=== PATIENT | female | born 1975 | race Two or more races ===

== ENCOUNTER 2020-09-04 08:15 | Outpatient (REF) | payer OTHER, SELFPAY ==
[2020-09-04 11:54] LABS: Estimated Average Glucose 226 mg/dL; Hemoglobin A1c % 9.5 %
[2020-09-04 12:07] LABS: Creatinine Urine 162.67 mg/dL; Microalbum/Creatinine Ratio Ur 5.5 ug/mg cr
[2020-09-04 12:13] LABS: Alanine Aminotransferase 58 U/L (0-31); Alkaline Phosphatase 42 U/L (39-117); Anion Gap 15 (12-20); Aspartate Amino Transferase 38 U/L (5-31); Bilirubin Total 0.5 mg/dL (0.0-1.0); Blood Urea Nitrogen 13 mg/dL (9-16); Calcium 8.9 mg/dL (8.4-10.2); Carbon Dioxide 26 mmol/L (22-29); Chloride 101 mmol/L (96-108); Cholesterol 245 mg/dL; Estimated Glomerular Filt Rate > 60; Glucose Fasting 201 mg/dL (60-99); HDL Cholesterol 46 mg/dL; LDL Cholesterol Calculated 128 mg/dl; Potassium 4.5 mmol/l (3.3-5.1); Sodium 137 mmol/L (135-145); Total Protein 6.7 g/dL (6.5-8.0); Triglycerides 358 mg/dL
[2020-09-04 12:36] LABS: Vitamin D 25-OH Total 12.5 ng/mL (>30)
== END 2020-09-04 08:16 | disposition home or self-care (01) ==
LOC: HO.MANLR 08:15
PROVIDERS: PCP Internal Medicine; Visit Provider Internal Medicine
DX: E11.9 Type 2 diabetes mellitus without complications (principal); E55.9 Vitamin D deficiency, unspecified
CPT/HCPCS: 80053; 80061; 82043; 82306; 83036

== ENCOUNTER 2021-03-07 11:38 | Outpatient (REF) | payer BC, SELFPAY ==
[2021-03-07 13:27] LABS: MANUAL DIFF FLAG NO
[2021-03-07 13:33] LABS: Basophils Percent Auto 0.5 % (0-2); Eosinophils Absolute Auto 0.2 X10*3/uL (0.0-0.4); Eosinophils Percent Auto 2.9 % (0-4); Hematocrit 39.4 % (37-47); Hemoglobin 13.3 g/dl (12.0-16.0); Imm Gran Abs Auto 0.03 X10*3/uL (0.00-0.03); Imm Gran Pct Auto 0.4 % (0.0-0.4); Lymphocytes Absolute Auto 2.8 X10*3/uL (1.2-4.9); Lymphocytes Percent Auto 34.9 % (20-40); Mean Corpuscular HGB Conc 33.8 g/dl (31.0-35.0); Mean Corpuscular Hemoglobin 28.8 pg (27.0-33.0); Mean Corpuscular Volume 85.3 fL (80-98); Mean Platelet Volume 11.7 fL (9.4-12.3); Monocytes Absolute Auto 0.6 X10*3/uL (0.1-1.2); Monocytes Percent Auto 6.8 % (2-11); Neutrophils Absolute Auto 4.4 X10*3/uL (2.0-8.3); Neutrophils Percent Auto 54.5 % (45-73); Platelet Count 320 X10*3/uL (160-400); Red Blood Count 4.62 X10*6/uL (4.20-5.50); Red Cell Distribution Width 12.4 % (11.0-16.0); White Blood Count 8.1 X10*3/uL (4.8-10.8)
[2021-03-07 14:21] LABS: Estimated Average Glucose 240 mg/dL
[2021-03-07 14:55] LABS: Alanine Aminotransferase 71 U/L (0-31); Alkaline Phosphatase 44 U/L (39-117); Anion Gap 13 (12-20); Aspartate Amino Transferase 48 U/L (5-31); Bilirubin Total 0.6 mg/dL (0.0-1.0); Blood Urea Nitrogen 8 mg/dL (9-16); Calcium 9.4 mg/dL (8.4-10.2); Carbon Dioxide 26 mmol/L (22-29); Chloride 104 mmol/L (96-108); Estimated Glomerular Filt Rate > 60; Glucose Random 195 mg/dL (60-115); Potassium 4.3 mmol/L (3.3-5.1); Sodium 139 mmol/L (135-145); Total Protein 6.4 g/dL (6.5-8.0)
[2021-03-07 14:59] LABS: Vitamin D 25-OH Total 13.9 ng/mL (>30)
== END 2021-03-07 11:39 | disposition home or self-care (01) ==
LOC: HO.MANLDS 11:38
PROVIDERS: PCP Internal Medicine; Visit Provider Physician Assistant
DX: E78.5 Hyperlipidemia, unspecified (principal); E55.9 Vitamin D deficiency, unspecified; E11.9 Type 2 diabetes mellitus without complications
CPT/HCPCS: 36415; 80053; 82306; 83036; 85025

== ENCOUNTER → 2021-11-12 12:31 | Outpatient (BNVA) | payer BC, SELFPAY | PROVIDERS: PCP Internal Medicine; Visit Provider Nurse Practitioner Gerontology | DX: E11.9 Type 2 diabetes mellitus without complications (principal); E78.5 Hyperlipidemia, unspecified; E55.9 Vitamin D deficiency, unspecified; E04.9 Nontoxic goiter, unspecified; I10 Essential (primary) hypertension; E66.09 Other obesity due to excess calories; Z68.31 Body mass index [BMI] 31.0-31.9, adult; Z79.84 Long term (current) use of oral hypoglycemic drugs | CPT/HCPCS: 82947; 83036 ==

== ENCOUNTER 2021-11-14 09:17 | Outpatient (REF) | payer BC, SELFPAY ==
[2021-11-14 12:06] LABS: Free T4 (Free Thyroxine) 1.07 ng/dL (0.71-1.85); Thyroid Stimulating Hormone 1.59 uIU/mL (0.32-4.0); Vitamin D 25-OH Total 15.2 ng/mL (>30)
[2021-11-14 12:08] LABS: Alanine Aminotransferase 46 U/L (0-31); Albumin Level 4.4 g/dL (3.5-5.0); Alkaline Phosphatase 37 U/L (39-117); Anion Gap 14 (12-20); Aspartate Amino Transferase 33 U/L (5-31); Bilirubin Total 0.6 mg/dL (0.0-1.0); Blood Urea Nitrogen 11 mg/dL (9-16); Carbon Dioxide 27 mmol/L (22-29); Chloride 103 mmol/L (96-108); Cholesterol 250 mg/dL; Estimated Glomerular Filt Rate > 60; Glucose Fasting 149 mg/dL (60-99); HDL Cholesterol 54 mg/dL; LDL Cholesterol Calculated 175 mg/dl; Potassium 4.3 mmol/L (3.3-5.1); Sodium 140 mmol/L (135-145); Total Protein 7.2 g/dL (6.5-8.0); Triglycerides 107 mg/dL
[2021-11-14 12:33] LABS: Creatinine Urine 70.77 mg/dL
[2021-11-15 14:56] LABS: LDL Cholesterol Direct 163 mg/dL (<100)
[2021-11-17 21:37] LABS: Thyroglobulin Antibodies <1 IU/mL (< or = 1); Thyroid Peroxidase Antibodies <1 IU/mL (<9)
== END 2021-11-14 09:18 | disposition home or self-care (01) ==
LOC: HO.HMGCLDS 09:17
PROVIDERS: Visit Provider Nurse Practitioner Gerontology
DX: E11.9 Type 2 diabetes mellitus without complications (principal); E04.9 Nontoxic goiter, unspecified; E55.9 Vitamin D deficiency, unspecified
CPT/HCPCS: 36415; 80053; 80061; 82043; 82306; 83721; 84439; 84443; 86376; 86800

== ENCOUNTER 2021-11-25 13:58 | Outpatient (REF) | payer BC, SELFPAY ==
--- NOTE | ~2021-11-25 | US_ITS ---
EXAMINATION: US THYROID CLINICAL INFORMATION: Goiter COMPARISON: None TECHNIQUE: Linear transducer grayscale and color Doppler examination with attention to the region of the thyroid. FINDINGS: SIZE: Measurements of the thyroid lobes and nodules are given in sagittal, anteroposterior and transverse dimensions respectively. Right Thyroid Lobe: 4.5 x 1.6 x 1.6 cm, volume 6.0 mL. Parenchyma: The gland echotexture is homogeneous. Thyroid vascularity is normal. Left Thyroid Lobe: 4.7 x 1.5 x 1.4 cm, volume 5.2 mL. Parenchyma: The gland echotexture is homogeneous. Thyroid vascularity is normal. Isthmus: 0.6 cm in maximum AP dimension. Estimated total number of nodules greater than or equal to 1 cm: 2. 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 Location: Left isthmus low. Size: 1.0 x 0.5 x 0.8 cm, volume 0.21 mL. Nodule characteristics: Composition: Solid (2). Echogenicity: Cannot be determined (1). Shape: Not taller than wide (0). Margins: Ill-defined (0). Echogenic Foci: None (0). ACR TI-RADS total points: 3 ACR TI-RADS category: 3 2. Location: Left lower. Size: 0.1 x 0.7 x 0.9 cm, volume 0.32 mL. Nodule characteristics: Composition: Solid (2). Echogenicity: Hyperechoic (1). Shape: Not taller than wide (0). Margins: Ill-defined (0). Echogenic Foci: None (0). ACR TI-RADS total points: 3 ACR TI-RADS category: 3 3. Location: Lower medial left. Size: 0.8 x 0.5 x 0.8 cm, volume 0.19 mL. Nodule characteristics: Composition: Solid (2). Echogenicity: Cannot be determined (1). Shape: Not taller than wide (0). Margins: Ill-defined (0). Echogenic Foci: None (0). ACR TI-RADS total points: 3 ACR TI-RADS category: 3 4. Location: Lower right isthmus. Size: 0.9 x 0.5 x 0.7 cm, volume 0.15 mL. Nodule characteristics: Composition: Solid (2). Echogenicity: Cannot be determined (1). Shape: Not taller than wide (0). Margins: Ill-defined (0). Echogenic Foci: None (0). ACR TI-RADS total points: 3 ACR TI-RADS category: 3 5. Location: Lower right isthmus. Size: 0.7 x 0.4 x 0.6 cm, volume 0.08 mL. Nodule characteristics: Composition: Solid (2). Echogenicity: Cannot be determined (1). Shape: Not taller than wide (0). Margins: Ill-defined (0). Echogenic Foci: None (0). ACR TI-RADS total points: 3 ACR TI-RADS category: 3 NODES: No lymphadenopathy is seen in the tissue surrounding the thyroid gland. US/US thyroid IMPRESSION: Normal size thyroid gland. Multiple adjacent clustered nodules in the inferior medial lower lobes and isthmus. According to TIRADS criteria, ultrasound follow-up and fine-needle aspiration not indicated. ACR TI-RADS RECOMMENDATION REFERENCE: Ultrasound-guided fine-needle aspiration, followup ultrasound, no further follow up. * TR1 (0 point) and TR 2 (2 points): No FNA or follow up * TR3 (3 points): FNA if more than or equal to 2.5 cm in maximum dimension, followup ultrasound in 1, 3 and 5 years if 1.5 to 2.4 cm in maximum dimension. * TR4 (4-6 points): FNA if more than or equal to 1.5 cm in maximum dimension, followup ultrasound in 1, 2, 3 and 5 years if 1 to 1.4 cm in maximum dimension. * TR5 (more than or equal to 7 points): FNA if more than or equal to 1 cm in maximum dimension, followup ultrasound every year for 5 years if 0.5 to 0.9 cm in maximum dimension. * TR3, TR4 or TR5 nodules that are below the size threshold for follow up receive no follow up.
== END 2021-11-25 13:59 | disposition home or self-care (01) ==
LOC: HO.HMGCX 13:58
PROVIDERS: PCP Internal Medicine; Visit Provider Nurse Practitioner Gerontology
DX: E04.9 Nontoxic goiter, unspecified (principal)
CPT/HCPCS: 76536

== ENCOUNTER → 2021-12-03 12:30 | Outpatient (BNVA) | payer BC, SELFPAY | PROVIDERS: PCP Internal Medicine; Visit Provider Registered Nurse Diabetes Educator ==

== ENCOUNTER 2022-02-10 12:25 | Outpatient (REF) | payer BC, SELFPAY ==
[2022-02-10 14:36] LABS: Vitamin D 25-OH Total 31.7 ng/mL (>30)
== END 2022-02-10 12:26 | disposition home or self-care (01) ==
LOC: HO.HMGCLDS 12:25
PROVIDERS: PCP Internal Medicine; Visit Provider Nurse Practitioner Gerontology
DX: E55.9 Vitamin D deficiency, unspecified (principal)
CPT/HCPCS: 36415; 82306

== ENCOUNTER → 2022-02-11 12:32 | Outpatient (BNVA) | payer BC, SELFPAY | PROVIDERS: PCP Internal Medicine; Visit Provider Nurse Practitioner Gerontology | DX: E11.9 Type 2 diabetes mellitus without complications (principal); E78.5 Hyperlipidemia, unspecified; E55.9 Vitamin D deficiency, unspecified; E66.09 Other obesity due to excess calories; I10 Essential (primary) hypertension; Z68.30 Body mass index [BMI] 30.0-30.9, adult; Z79.84 Long term (current) use of oral hypoglycemic drugs | CPT/HCPCS: 82947; 83036 ==

== ENCOUNTER 2022-03-25 11:43 | Outpatient (REF) | payer BC, SELFPAY ==
[2022-03-25 13:41] LABS: MANUAL DIFF FLAG NO
[2022-03-25 13:54] LABS: Basophils Percent Auto 0.5 % (0-2); Eosinophils Absolute Auto 0.4 X10*3/uL (0.0-0.4); Eosinophils Percent Auto 4.6 % (0-4); Hematocrit 40.3 % (37.0-47.0); Hemoglobin 13.5 g/dl (12.0-16.0); Imm Gran Abs Auto 0.02 X10*3/uL (0.00-0.03); Imm Gran Pct Auto 0.2 % (0.0-0.4); Lymphocytes Absolute Auto 2.3 X10*3/uL (1.2-4.9); Lymphocytes Percent Auto 27.8 % (20-40); Mean Corpuscular HGB Conc 33.5 g/dl (31.0-35.0); Mean Corpuscular Hemoglobin 28.1 pg (27.0-33.0); Mean Corpuscular Volume 83.8 fL (80.0-98.0); Mean Platelet Volume 11.5 fL (9.4-12.3); Monocytes Absolute Auto 0.5 X10*3/uL (0.1-1.2); Monocytes Percent Auto 6.3 % (2-11); Neutrophils Percent Auto 60.6 % (45-73); Platelet Count 338 X10*3/uL (160-400); Red Blood Count 4.81 X10*6/uL (4.20-5.50); Red Cell Distribution Width 12.5 % (11.0-16.0); White Blood Count 8.3 X10*3/uL (4.8-10.8)
[2022-03-25 14:29] LABS: Alanine Aminotransferase 41 U/L (0-31); Alkaline Phosphatase 47 U/L (39-117); Amylase 56 U/L (28-100); Anion Gap 14 (12-20); Aspartate Amino Transferase 28 U/L (5-31); Bilirubin Total 0.5 mg/dL (0.0-1.0); Blood Urea Nitrogen 9 mg/dL (9-16); C Reactive Protein 0.31 mg/dL (< or = 0.50); Calcium 9.2 mg/dL (8.4-10.2); Carbon Dioxide 23 mmol/L (22-29); Chloride 104 mmol/L (96-108); Estimated Glomerular Filt Rate > 60; Gamma Glutamyl Transpeptidase 41 U/L (7-33); Glucose Random 190 mg/dL (60-115); Iron 62 mcg/dL (30-160); Lipase 138 U/L (8-78); Percent Iron Saturation 17 % (15-50); Potassium 4.4 mmol/L (3.3-5.1); Sodium 137 mmol/L (135-145); Total Iron Binding Capacity 357 mcg/dL (228-428); Total Protein 6.5 g/dL (6.5-8.0); Unsaturated Iron Binding 295 ug/dL
[2022-03-25 14:52] LABS: Ferritin 66 ng/mL (10-250)
[2022-03-25 15:12] LABS: Erythrocyte Sedimentation Rate 3 MM/HR (0-20)
== END 2022-03-25 11:44 | disposition home or self-care (01) ==
LOC: HO.MANLDS 11:43
PROVIDERS: Visit Provider Physician Assistant
DX: R19.7 Diarrhea, unspecified (principal)
CPT/HCPCS: 36415; 80053; 82150; 82728; 82977; 83540; 83690; 85025; 85652; 86140

== ENCOUNTER 2022-03-27 10:53 | Outpatient (REF) | payer BC, SELFPAY ==
[2022-03-27 15:13] LABS: Adenovirus F 40/41 Not Detected (Not Detect.); Astrovirus Not Detected (Not Detect.); Campylobacter Not Detected (Not Detect.); Cryptosporidium Not Detected (Not Detect.); Cyclospora cayetanensis Not Detected (Not Detect.); E. coli EAEC Not Detected (Not Detect.); E. coli EPEC Not Detected (Not Detect.); E. coli ETEC Not Detected (Not Detect.); E. coli STEC Not Detected (Not Detect.); Entamoeba histolytica Not Detected (Not Detect.); Giardia lamblia Not Detected (Not Detect.); Norovirus GI/GII Not Detected (Not Detect.); Plesiomonas shigelloides Not Detected (Not Detect.); Rotavirus A Not Detected (Not Detect.); Salmonella Not Detected (Not Detect.); Sapovirus Not Detected (Not Detect.); Shigella sp./EIEC Not Detected (Not Detect.); Vibrio Not Detected (Not Detect.); Vibrio Cholerae Not Detected (Not Detect.); Yersinia enterocolitica Not Detected (Not Detect.)
== END 2022-03-27 10:54 | disposition home or self-care (01) ==
LOC: HO.MANLDS 10:53
PROVIDERS: Visit Provider Physician Assistant
DX: R19.7 Diarrhea, unspecified (principal); R10.9 Unspecified abdominal pain; R19.5 Other fecal abnormalities
CPT/HCPCS: 36415; 87507

== ENCOUNTER 2022-04-16 09:02 | Outpatient (REF) | payer BC, SELFPAY ==
--- NOTE | 2022-04-16 09:49 | PM.OP ---
Brief Operative Note Date of Service: 04/16/22 Pre-op diagnosis: Multinodular Thyroid Procedure: EXAMINATION: US THYROID CLINICAL INFORMATION: Multinodular Thyroid COMPARISON: Prior TECHNIQUE: Linear transducer orozco-scale and color Doppler examination with attention to the region of the thyroid. FINDINGS: SIZE: Measurements of the thyroid lobes and nodules are given in sagittal, anteroposterior and transverse dimensions respectively. Right Thyroid Lobe: 4.8 x 1.4 x 1.3 cm, volume 4.3 mL. Parenchyma: The gland echotexture is heterogenous. Thyroid vascularity is normal. Left Thyroid Lobe: 4.9 x 1.2 x 1.2 cm, volume 3.6 mL. Parenchyma: The gland echotexture is heterogenous. Thyroid vascularity is normal. Isthmus: 0.5 cm in maximum AP dimension. RIGHT THYROID LOBE: There are 2 nodules. 1) There is a right isthmus 0.5 x 0.5 x 0.6 cm predominantly solid hyperechoic nodule nodule.This has regular margins, no calcification and normal intranodular flow. 1) There is a right isthmus 0.4 x 0.6 x 0.6 cm predominantly solid hyperechoic nodule nodule.This has regular margins, no calcification and normal intranodular flow. LEFT THYROID LOBE: There are 3 nodules. 1) There is a LMP 1.0 x 0.7 x 0.8 cm predominantly solid hyperechoic nodule nodule.This has regular margins, no calcification and normal intranodular flow. 2) There is a LMP 1.1 x 0.8 x 0.9 cm predominantly solid hyperechoic nodule nodule.This has regular margins, no calcification and normal intranodular flow. 3) There is a LMP 1.0 x 0.6 x 1.0 cm predominantly solid hyperechoic nodule nodule.This has regular margins, no calcification and normal intranodular flow. NODES: No lymph nodes were examined. Surgeon: Rosa Marcos, DO Was an After School Driver used for this Procedure?: No Estimated blood loss (mL): 0
== END 2022-04-16 09:03 | disposition home or self-care (01) ==
LOC: HO.US 09:02
PROVIDERS: Visit Provider Internal Medicine
DX: E04.2 Nontoxic multinodular goiter (principal)
CPT/HCPCS: 76536

== ENCOUNTER 2022-04-30 13:30 | Outpatient (REF) | payer BC, SELFPAY ==
[2022-04-30 14:57] LABS: Free T4 (Free Thyroxine) 1.01 ng/dL (0.71-1.85); Thyroid Stimulating Hormone 1.07 uIU/mL (0.32-4.0)
== END 2022-04-30 13:31 | disposition home or self-care (01) ==
LOC: HO.LAB 13:30
PROVIDERS: PCP Internal Medicine; Visit Provider Internal Medicine
DX: E04.2 Nontoxic multinodular goiter (principal)
CPT/HCPCS: 36415; 84439; 84443

== ENCOUNTER 2022-07-20 15:24 | Outpatient (REF) | payer BC, SELFPAY ==
[2022-07-20 17:37] LABS: MANUAL DIFF FLAG NO
[2022-07-20 17:44] LABS: Basophils Percent Auto 0.5 % (0-2); Eosinophils Absolute Auto 0.4 X10*3/uL (0.0-0.4); Eosinophils Percent Auto 4.8 % (0-4); Hematocrit 40.7 % (37.0-47.0); Hemoglobin 14.1 g/dl (12.0-16.0); Imm Gran Abs Auto 0.03 X10*3/uL (0.00-0.03); Imm Gran Pct Auto 0.4 % (0.0-0.4); Lymphocytes Absolute Auto 2.9 X10*3/uL (1.2-4.9); Lymphocytes Percent Auto 35.8 % (20-40); Mean Corpuscular HGB Conc 34.6 g/dl (31.0-35.0); Mean Corpuscular Hemoglobin 29.1 pg (27.0-33.0); Mean Corpuscular Volume 83.9 fL (80.0-98.0); Mean Platelet Volume 11.8 fL (9.4-12.3); Monocytes Absolute Auto 0.6 X10*3/uL (0.1-1.2); Neutrophils Absolute Auto 4.1 x10*3/uL (2.0-8.3); Neutrophils Percent Auto 51.5 % (45-73); Platelet Count 320 X10*3/uL (160-400); Red Blood Count 4.85 X10*6/uL (4.20-5.50); Red Cell Distribution Width 12.5 % (11.0-16.0)
[2022-07-20 17:48] LABS: Estimated Average Glucose 263 mg/dL; Hemoglobin A1c % 10.8 %
[2022-07-20 17:51] LABS: Alanine Aminotransferase 29 U/L (0-31); Alkaline Phosphatase 53 U/L (39-117); Anion Gap 17 (12-20); Aspartate Amino Transferase 22 U/L (5-31); Bilirubin Total 0.4 mg/dL (0.0-1.0); Blood Urea Nitrogen 7 mg/dL (9-16); C Reactive Protein 0.51 mg/dL (< or = 0.50); Calcium 9.8 mg/dL (8.4-10.2); Carbon Dioxide 26 mmol/L (22-29); Chloride 99 mmol/L (96-108); Estimated Glomerular Filt Rate > 60; Glucose Random 302 mg/dL (60-115); Potassium 4.4 mmol/L (3.3-5.1); Sodium 138 mmol/L (135-145); Total Protein 6.7 g/dL (6.5-8.0)
[2022-07-20 18:37] LABS: Erythrocyte Sedimentation Rate 5 MM/HR (0-20)
== END 2022-07-20 15:25 | disposition home or self-care (01) ==
LOC: HO.MANLDS 15:24
PROVIDERS: Visit Provider Physician Assistant
DX: E11.65 Type 2 diabetes mellitus with hyperglycemia (principal); K65.4 Sclerosing mesenteritis
CPT/HCPCS: 36415; 80053; 83036; 85025; 85652; 86140

== ENCOUNTER 2022-08-19 10:31 | Outpatient (REF) | payer BC, SELFPAY ==
--- NOTE | ~2022-08-19 | US_ITS ---
EXAMINATION: US SOFT TISSUE NECK CLINICAL INFORMATION: Localized enlarged lymph nodes. COMPARISON: None TECHNIQUE: Ultrasound of the neck soft tissues was performed with high-frequency orozco-scale imaging and color Doppler. FINDINGS: RIGHT NECK SOFT TISSUES: Scattered architecturally normal nodes are present. The nodes show normal fatty hilus, normal cortical thickness, and no cystic change or calcification. No abnormal color flow. The largest nodes are as follows: Level Vb: 1.13 x 0.53 x 0.78 cm. Normal kandice architecture. Level II: 1.2 x 0.45 x 1.3 cm. Normal kandice architecture. Level II: 0.90 x 0.33 x 1.3 cm. Normal kandice architecture. LEFT NECK SOFT TISSUES: Scattered architecturally normal nodes are present. The nodes show normal fatty hilus, normal cortical thickness, and no cystic change or calcification. No abnormal color flow. The largest nodes are as follows: Level Ib: 0.70 x 0.43 x 0.71 cm. Normal kandice architecture. Level II: 1.0 x 0.42 x 0.80 cm. Normal kandice architecture. Level Va: 0.81 x 0.25 x 0.48 cm. Normal kandice architecture. US/US soft tiss head and/or neck IMPRESSION: 1. Bilateral benign neck lymph nodes. 2. If clinically indicated, further evaluation of the neck soft tissues and nodes may be performed with CT soft tissue neck with intravenous contrast.
== END 2022-08-19 10:32 | disposition home or self-care (01) ==
LOC: HO.HMGCX 10:31
PROVIDERS: PCP Physician Assistant; Visit Provider Physician Assistant
DX: R59.0 Localized enlarged lymph nodes (principal)
CPT/HCPCS: 76536

== ENCOUNTER 2022-09-08 09:58 | Outpatient (REF) | payer BC, SELFPAY ==
[2022-09-08 12:19] LABS: Monotest Negative (Negative)
[2022-09-09 08:28] LABS: EBV-VCA IgM Ab <36.00 U/mL
== END 2022-09-08 09:59 | disposition home or self-care (01) ==
LOC: HO.MANLDS 09:58
PROVIDERS: Visit Provider Physician Assistant
DX: R07.0 Pain in throat (principal)
CPT/HCPCS: 36415; 86308; 86664; 86665

== ENCOUNTER 2023-02-02 09:05 | Outpatient (REF) | payer BC, SELFPAY ==
[2023-02-02 11:40] LABS: Estimated Average Glucose 249 mg/dL; Hemoglobin A1c % 10.3 %
[2023-02-02 12:05] LABS: Alanine Aminotransferase 21 U/L (0-31); Albumin Level 3.9 g/dL (3.5-5.0); Alkaline Phosphatase 43 U/L (39-117); Anion Gap 15 (12-20); Aspartate Amino Transferase 19 U/L (5-31); Bilirubin Total 0.8 mg/dL (0.0-1.0); Blood Urea Nitrogen 8 mg/dL (9-16); Calcium 9.3 mg/dL (8.4-10.2); Carbon Dioxide 26 mmol/L (22-29); Chloride 104 mmol/L (96-108); Cholesterol 211 mg/dL; Estimated Glomerular Filt Rate > 60; Glucose Random 177 mg/dL (60-115); HDL Cholesterol 57 mg/dL; LDL Cholesterol Calculated 127 mg/dl; Potassium 4.5 mmol/L (3.3-5.1); Sodium 140 mmol/L (135-145); Total Protein 6.2 g/dL (6.5-8.0); Triglycerides 137 mg/dL
== END 2023-02-02 09:06 | disposition home or self-care (01) ==
LOC: HO.MANLDS 09:05
PROVIDERS: Visit Provider Physician Assistant
DX: E11.65 Type 2 diabetes mellitus with hyperglycemia (principal)
CPT/HCPCS: 36415; 80053; 80061; 83036

== ENCOUNTER 2023-02-16 13:35 | Outpatient (REF) | payer BC, SELFPAY ==
--- NOTE | ~2023-02-16 | US_ITS ---
EXAMINATION: US THYROID CLINICAL INFORMATION: Nontoxic multinodular goiter. COMPARISON: Ultrasound soft tissue neck 08/19/2022. Ultrasound soft tissue head/neck thyroid dated 11/25/2021. TECHNIQUE: Linear transducer grayscale and color Doppler examination with attention to the region of the thyroid. FINDINGS: SIZE: Measurements of the thyroid lobes and nodules are given in sagittal, anteroposterior and transverse dimensions respectively. Right Thyroid Lobe: 4.8 x 1.8 x 1.6 cm, volume 7.2 mL. Previously 4.5 x 1.6 x 1.6 cm, volume 6.0 mL. Parenchyma: The gland echotexture is homogeneous. Thyroid vascularity is normal. Left Thyroid Lobe: 5.1 x 1.3 x 1.5 cm, volume 5.2 mL. Previously 4.7 x 1.5 x 1.4 cm, volume 5.2 mL. Parenchyma: The gland echotexture is homogeneous. Thyroid vascularity is normal. Isthmus: 0.6 cm in maximum AP dimension. Previously 0.5 cm. Estimated total number of nodules greater than or equal to 1 cm: 3. 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 Location: Inferior right isthmus. Size: 0.6 x 0.4 x 0.6 cm, volume 0.07 mL. Previously: 0.9 x 0.5 x 0.7 cm, volume 0.15 mL. Nodule characteristics: Composition: Solid/almost completely solid (2). Echogenicity: Isoechoic (1). Shape: Not taller than wide (0). Margins: Smooth (0). Echogenic Foci: None (0). ACR TI-RADS total points: 3 Previous: 3 ACR TI-RADS category: 3 Previous: 3 Significant change in size (>/= 20% in 2 dimensions and minimal increase of 2 mm or 50% or greater increase in volume): No Change in features: No Change in ACR TI-RADS risk category: No 2. Location: Inferior isthmus. Size: 1.0 x 0.6 x 0.6 cm, volume 0.19 mL. Previously: 0.7 x 0.4 x 0.6 cm, volume 0.08 mL. Nodule characteristics: Composition: Solid (2). Echogenicity: Isoechoic (1). Shape: Not taller than wide (0). Margins: Smooth (0). Echogenic Foci: None (0). ACR TI-RADS total points: 3 Previous: 3 ACR TI-RADS category: 3 Previous: 3 Significant change in size (>/= 20% in 2 dimensions and minimal increase of 2 mm or 50% or greater increase in volume): No Change in features: No Change in ACR TI-RADS risk category: No 3. Location: Left inferior medial. Size: 1.6 x 0.7 x 0.9 cm, volume 0.48 mL. Previously: 1.0 x 0.5 x 0.8 cm, volume 0.21 mL. Nodule characteristics: Composition: Solid (2). Echogenicity: Hypoechoic (2). Shape: Not taller than wide (0). Margins: Smooth (0). Echogenic Foci: None (0). ACR TI-RADS total points: 4 Previous: 3 ACR TI-RADS category: 4 Previous: 3 Significant change in size (>/= 20% in 2 dimensions and minimal increase of 2 mm or 50% or greater increase in volume): Yes Change in features: Yes Change in ACR TI-RADS risk category: Yes 4. Location: Left inferior medial. Size: 1.3 x 0.7 x 0.9 cm, volume 0.43 mL. Previously: 1.1 x 0.7 x 0.9 cm, volume 0.32 mL. Nodule characteristics: Composition: Solid (2). Echogenicity: Isoechoic (1). Shape: Not taller than wide (0). Margins: Smooth (0). Echogenic Foci: None (0). ACR TI-RADS total points: 3 Previous: 3 ACR TI-RADS category: 3 Previous: 3 Significant change in size (>/= 20% in 2 dimensions and minimal increase of 2 mm or 50% or greater increase in volume): No Change in features: No Change in ACR TI-RADS risk category: No 5. Location: Right inferior. Size: 0.8 x 0.3 x 0.5 cm, volume 0.07 mL. Previously: New since the previous study. Nodule characteristics: Composition: Solid/almost completely solid (2). Echogenicity: Isoechoic (1). Shape: Not taller than wide (0). Margins: Smooth (0). Echogenic Foci: None (0). ACR TI-RADS total points: 3 ACR TI-RADS category: 3 NODES: No lymphadenopathy is seen in the tissue surrounding the thyroid gland. US/US thyroid IMPRESSION: Left Inferior pole 1.6 cm TI-RADS 4 nodule. Per ACR criteria given size equal to or greater than 1.5 cm, FNA is recommended. Remaining nodules do not meet ACR criteria for follow-up. ACR TI-RADS RECOMMENDATION REFERENCE: Ultrasound-guided fine-needle aspiration, followup ultrasound, no further follow up. * TR1 (0 point) and TR2 (2 points): No FNA or follow up * TR3 (3 points): FNA if more than or equal to 2.5 cm in maximum dimension, followup ultrasound in 1, 3 and 5 years if 1.5 to 2.4 cm in maximum dimension. * TR4 (4-6 points): FNA if more than or equal to 1.5 cm in maximum dimension, followup ultrasound in 1, 2, 3 and 5 years if 1 to 1.4 cm in maximum dimension. * TR5 (more than or equal to 7 points): FNA if more than or equal to 1 cm in maximum dimension, followup ultrasound every year for 5 years if 0.5 to 0.9 cm in maximum dimension. * TR3, TR4 or TR5 nodules that are below the size threshold for follow up receive no follow up.
== END 2023-02-16 13:36 | disposition home or self-care (01) ==
LOC: HO.HMGCX 13:35
PROVIDERS: PCP Physician Assistant; Visit Provider Internal Medicine
DX: E04.2 Nontoxic multinodular goiter (principal)
CPT/HCPCS: 76536

== ENCOUNTER 2023-04-29 13:48 | Outpatient (AMB) | payer BC, SELFPAY ==
--- NOTE | 2023-04-29 11:14 | A.OFFVIS_ITS ---
Intake Intake Visit Reasons: NTMNG Allergies levofloxacin [From Levaquin] Allergy (Severe, Verified 04/29/23 13:55) Anaphylaxis acetaminophen [From Tylox] Allergy (Unknown, Verified 04/29/23 13:55) Unknown cefaclor [From Ceclor] Allergy (Unknown, Verified 04/29/23 13:55) Unknown clindamycin Allergy (Unknown, Verified 04/29/23 13:55) Unknown codeine Allergy (Unknown, Verified 04/29/23 13:55) Unknown hydrocodone Allergy (Unknown, Verified 04/29/23 13:55) Unknown hydromorphone [From Dilaudid] Allergy (Unknown, Verified 04/29/23 13:55) Unknown oxycodone [From Tylox] Allergy (Unknown, Verified 04/29/23 13:55) Unknown morphine Adverse Reaction (Severe, Verified 04/29/23 13:55) Vomiting Lfqxfqd-MIP-PgI Reductase Inhibitor [Ixulryp-Wsz-Rko Reductase Inhibitor] Adverse Reaction (Intermediate, Verified 04/29/23 13:55) Itching azithromycin Adverse Reaction (Mild, Verified 04/29/23 13:55) Itching Medication List - Last Reconciled 04/29/23 by Rosa Marcos, epinephrine 0.3 mg IM Q15M PRN flash glucose sensor (FreeStyle Brent 2 Sensor kit) As directed every 2 weeks metformin 1,000 mg PO BID propranolol ER 80 mg PO DAILY rosuvastatin 5 mg PO DAILY HPI HPI Comments History of Present Illness Details 48 YO Female with a PMHx of T2DM and a NTMNG who is seen in F/U. She was previously managed by Doris Gaytan. She was scheduled for an FNA biopsy with me of her L isthmus 1.0 cm thyroid nodule 04/16/2022, however at that time I repeated her US of the thyroid and found her gland to be diffusely heterogenous with no nodules meeting indication for FNA biopsy. She does report some compressive symptoms in terms of occasional dysphagia and the sensation of having to clear her throat. She denies any symptoms of hyper or hypothyroidism currently. She denies any personal history of head or neck irradiation. She denies any Family history of thyroid cancer. She does report a diagnosis of Grave's disease in one of her cousins. Thyroid US: 02/16/2023 Right Thyroid Lobe: 4.8 x 1.8 x 1.6 cm, volume 7.2 mL. Previously 4.5 x 1.6 x 1.6 cm, volume 6.0 mL. Parenchyma: The gland echotexture is homogeneous. Thyroid vascularity is normal. Left Thyroid Lobe: 5.1 x 1.3 x 1.5 cm, volume 5.2 mL. Previously 4.7 x 1.5 x 1.4 cm, volume 5.2 mL. Parenchyma: The gland echotexture is homogeneous. Thyroid vascularity is normal. Isthmus: 0.6 cm in maximum AP dimension. Previously 0.5 cm. Estimated total number of nodules greater than or equal to 1 cm: 3. 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 Location: Inferior right isthmus. ?? ? Size: 0.6 x 0.4 x 0.6 cm, volume 0.07 mL. ?? ? Previously: 0.9 x 0.5 x 0.7 cm, volume 0.15 mL. ?? ? Nodule characteristics: ?? ? Composition: Solid/almost completely solid (2). ?? ? Echogenicity: Isoechoic (1). ?? ? Shape: Not taller than wide (0). ?? ? Margins: Smooth (0). ?? ? Echogenic Foci: None (0).? ACR TI-RADS total points: 3 Previous: 3 ?? ? ACR TI-RADS category: 3 Previous: 3 ? Significant change in size (>/= 20% in 2 dimensions and minimal increase of 2 mm or 50% or greater increase in volume): No ?? ? Change in features: No ?? ? Change in ACR TI-RADS risk category: No 2.? Location: Inferior isthmus. ?? ? Size: 1.0 x 0.6 x 0.6 cm, volume 0.19 mL. ?? ? Previously: 0.7 x 0.4 x 0.6 cm, volume 0.08 mL. ?? ? Nodule characteristics: ?? ? Composition: Solid (2). ?? ? Echogenicity: Isoechoic (1). ?? ? Shape: Not taller than wide (0). ?? ? Margins: Smooth (0). ?? ? Echogenic Foci: None (0).? ACR TI-RADS total points: 3 Previous: 3 ?? ? ACR TI-RADS category: 3 Previous: 3 ? Significant change in size (>/= 20% in 2 dimensions and minimal increase of 2 mm or 50% or greater increase in volume): No ?? ? Change in features: No ?? ? Change in ACR TI-RADS risk category: No 3.? Location: Left inferior medial. ?? ? Size: 1.6 x 0.7 x 0.9 cm, volume 0.48 mL. ?? ? Previously: 1.0 x 0.5 x 0.8 cm, volume 0.21 mL. ?? ? Nodule characteristics: ?? ? Composition: Solid (2). ?? ? Echogenicity: Hypoechoic (2). ?? ? Shape: Not taller than wide (0). ?? ? Margins: Smooth (0). ?? ? Echogenic Foci: None (0).? ACR TI-RADS total points: 4 Previous: 3 ?? ? ACR TI-RADS category: 4 Previous: 3 ? Significant change in size (>/= 20% in 2 dimensions and minimal increase of 2 mm or 50% or greater increase in volume): Yes ?? ? Change in features: Yes ?? ? Change in ACR TI-RADS risk category: Yes 4.? Location: Left inferior medial. ?? ? Size: 1.3 x 0.7 x 0.9 cm, volume 0.43 mL. ?? ? Previously: 1.1 x 0.7 x 0.9 cm, volume 0.32 mL. ?? ? Nodule characteristics: ?? ? Composition: Solid (2). ?? ? Echogenicity: Isoechoic (1). ?? ? Shape: Not taller than wide (0). ?? ? Margins: Smooth (0). ?? ? Echogenic Foci: None (0).? ACR TI-RADS total points: 3 Previous: 3 ?? ? ACR TI-RADS category: 3 Previous: 3 ? Significant change in size (>/= 20% in 2 dimensions and minimal increase of 2 mm or 50% or greater increase in volume): No ?? ? Change in features: No ?? ? Change in ACR TI-RADS risk category: No 5.? Location: Right inferior. ?? ? Size: 0.8 x 0.3 x 0.5 cm, volume 0.07 mL. ?? ? Previously: New since the previous study. ?? ? Nodule characteristics: ?? ? Composition: Solid/almost completely solid (2). ?? ? Echogenicity: Isoechoic (1). ?? ? Shape: Not taller than wide (0). ?? ? Margins: Smooth (0). ?? ? Echogenic Foci: None (0).? ACR TI-RADS total points: 3 ?? ? ACR TI-RADS category: 3 NODES: No lymphadenopathy is seen in the tissue surrounding the thyroid gland. Labs: Laboratory Tests 11/14/21 09:24 TSH 1.59 PFSH Medical History Asthma DM2 (diabetes mellitus, type 2) Dyslipidemia Dysphagia Essential hypertension Fibromyalgia Goiter Obesity due to excess calories Vitamin D deficiency Surgical History History of partial hysterectomy Family History Mother Spinal stenosis Father Hypertension Maternal Grandfather Colon cancer Lymphoma Maternal Grandmother No problems noted. Maternal Aunt Breast cancer Maternal Aunt Type 2 diabetes mellitus High cholesterol Social History Household Members: Spouse and Children Alcohol intake: current Patient Tobacco Use Status: Never used Tobacco Assessment & Plan Assessment & Plan (1) Multinodular goiter: Code(s): E04.2 - Nontoxic multinodular goiter Plan: Patient with a nontoxic MNG. Plan for now is to check TFTs. Repeat thyroid US reveals 3 nodules meeting indication for FNA biopsy, her isthmus 1.0 cm, left mid 1.3 cm and left mid 1.6 cm thyroid nodules. I will schedule her for FNA biopsy with IR at this time. All of her questions were answered. She is in agreement with this plan of care. I spent 20 minutes in reviewing the record, seeing the patient and documenting in the medical record, including 5 minutes on the phone with the Patient. (2) Dysphagia: Code(s): R13.10 - Dysphagia, unspecified Plan: Will schedule for a modified barium swallow at this time. Orders: Orders US biopsy thyroid Today E04.2 - Nontoxic multinodular goiter Free T4 (Free Thyroxine) Today E04.2 - Nontoxic multinodular goiter Thyroid Stimulating Hormone Today E04.2 - Nontoxic multinodular goiter [place] barium swallow modified Today R13.10 - Dysphagia, unspecified Telehealth Telehealth Location of provider rendering services: practice address Location of patient: address on file Patient Identification confirmed using: Name, : Yes Telehealth method: voice only Patient verbally consented to treatment: Yes Patient verbally consented to billing insurance company: Yes Patient informed of any privacy concerns related to visit: Yes Coding Level of Care Code Tele Est Pt Level 3 (02831) Diagnoses Multinodular goiter E04.2 Dysphagia R13.10
== END 2023-04-29 14:16 | disposition home or self-care (01) ==
LOC: HO.ENCR 13:48
PROVIDERS: PCP Physician Assistant; Visit Provider Internal Medicine
DX: E04.2 Nontoxic multinodular goiter (principal); R13.10 Dysphagia, unspecified
CPT/HCPCS: 99441

== ENCOUNTER → 2023-04-29 13:48 | Outpatient (BNVA) | payer BC, SELFPAY | PROVIDERS: PCP Physician Assistant; Visit Provider Internal Medicine ==

== ENCOUNTER 2023-06-01 13:23 | Outpatient (REF) | payer BC, SELFPAY ==
--- NOTE | ~2023-06-01 | US_ITS ---
Thyroid nodule biopsy INDICATIONS: Multiple thyroid nodules After informed and written consent was obtained an official timeout was performed immediately prior to the procedure. PROCEDURE: 3 thyroid nodules were biopsied. The thyroid nodule in the right side of the thyroid isthmus measuring 0.84 x 0.8 x 0.4 cm was biopsied utilizing a 25-gauge needle. 3 needle aspirates were obtained. The specimens were felt to be adequate for diagnostic purposes. The 2 nodules in the left lobe of the gland were biopsied with a 25-gauge needle as well. The more cephalad lesion measuring 1.6 x 0.7 x 0.9 cm was biopsied twice and felt to be adequate for diagnostic purposes. The second nodule more inferiorly located measuring 1.3 x 0.7 x 0.9 cm was biopsy 5 times. US/US guided fine needle asp IMPRESSION: Ultrasound-guided biopsy of 3 of the nodules one in the isthmus of the right lobe of the gland as noted. 2 separate areas were biopsied in the left lobe of the thyroid gland where there are 2 separate nodules which appear to be contiguous.
[2023-06-01] MEDS: Lidocaine HCl 1 % MPF 5 ML VIAL 10 ML SUBCUT (14:58)
== END 2023-06-01 13:24 | disposition home or self-care (01) ==
LOC: HO.US 13:23
PROVIDERS: PCP Physician Assistant; Visit Provider Internal Medicine
DX: E04.2 Nontoxic multinodular goiter (principal)
CPT/HCPCS: 10005; 10006; 88172; 88173; 88177

== ENCOUNTER → 2023-06-01 13:24 | Outpatient (BNV) | payer BC, SELFPAY | PROVIDERS: PCP Physician Assistant; Visit Provider Radiology Vascular & Interventional Radiology | DX: E04.2 Nontoxic multinodular goiter (principal) | CPT/HCPCS: 10005; 10006 ==

== ENCOUNTER 2023-06-17 16:12 | Outpatient (AMB) | payer BC, SELFPAY ==
--- NOTE | 2023-06-17 16:21 | MHC.OFFVIS ---
Intake Vital Signs 06/17/23 16:22 Height 5 ft 5 in Weight 171 lb 11.841 oz BMI 28.6 BP 146/90 H Blood Pressure Location Rt brachial Position Sitting Pulse 90 Pulse Source Pulse Oximeter Intake Visit Reasons: FNA Results/confirmed Intake Note: Patient present for FNA results. Candy Dipper Hand Required: No Accompanied by: Spouse Allergies levofloxacin [From Levaquin] Allergy (Severe, Verified 06/17/23 16:23) Anaphylaxis acetaminophen [From Tylox] Allergy (Unknown, Verified 06/17/23 16:23) Unknown cefaclor [From Ceclor] Allergy (Unknown, Verified 06/17/23 16:23) Unknown clindamycin Allergy (Unknown, Verified 06/17/23 16:23) Unknown codeine Allergy (Unknown, Verified 06/17/23 16:23) Unknown hydrocodone Allergy (Unknown, Verified 06/17/23 16:23) Unknown hydromorphone [From Dilaudid] Allergy (Unknown, Verified 06/17/23 16:23) Unknown oxycodone [From Tylox] Allergy (Unknown, Verified 06/17/23 16:23) Unknown morphine Adverse Reaction (Severe, Verified 06/17/23 16:23) Vomiting Itjrfvi-KPZ-RrM Reductase Inhibitor [Bffcqpt-Jrk-Mwh Reductase Inhibitor] Adverse Reaction (Intermediate, Verified 06/17/23 16:23) Itching azithromycin Adverse Reaction (Mild, Verified 06/17/23 16:23) Itching HPI HPI Comments History of Present Illness Details 48 YO Female with a PMHx of T2DM and a NTMNG who is seen in /U. She was previously seen by Dr. Solares on 04/29/2023 She was scheduled for an FNA biopsy with me of her L isthmus 1.0 cm thyroid nodule 04/16/2022, however at that time I repeated her US of the thyroid and found her gland to be diffusely heterogenous with no nodules meeting indication for FNA biopsy. She does report some compressive symptoms in terms of occasional dysphagia and the sensation of having to clear her throat. She denies any symptoms of hyper or hypothyroidism currently. She denies any personal history of head or neck irradiation. She denies any Family history of thyroid cancer. She does report a diagnosis of Grave's disease in one of her cousins. Thyroid US: 02/16/2023 Right Thyroid Lobe: 4.8 x 1.8 x 1.6 cm, volume 7.2 mL. Previously 4.5 x 1.6 x 1.6 cm, volume 6.0 mL. Parenchyma: The gland echotexture is homogeneous. Thyroid vascularity is normal. Left Thyroid Lobe: 5.1 x 1.3 x 1.5 cm, volume 5.2 mL. Previously 4.7 x 1.5 x 1.4 cm, volume 5.2 mL. Parenchyma: The gland echotexture is homogeneous. Thyroid vascularity is normal. Isthmus: 0.6 cm in maximum AP dimension. Previously 0.5 cm. Estimated total number of nodules greater than or equal to 1 cm: 3. Rivet Sticker nodules are described as follows: 1.? Location: Inferior right isthmus. ?? ? Size: 0.6 x 0.4 x 0.6 cm, volume 0.07 mL. ?? ? Previously: 0.9 x 0.5 x 0.7 cm, volume 0.15 mL. ?? ? Nodule characteristics: ?? ? Composition: Solid/almost completely solid (2). ?? ? Echogenicity: Isoechoic (1). ?? ? Shape: Not taller than wide (0). ?? ? Margins: Smooth (0). ?? ? Echogenic Foci: None (0).? ACR TI-RADS total points: 3 Previous: 3 ?? ? ACR TI-RADS category: 3 Previous: 3 ? Significant change in size (>/= 20% in 2 dimensions and minimal increase of 2 mm or 50% or greater increase in volume): No ?? ? Change in features: No ?? ? Change in ACR TI-RADS risk category: No 2.? Location: Inferior isthmus. ?? ? Size: 1.0 x 0.6 x 0.6 cm, volume 0.19 mL. ?? ? Previously: 0.7 x 0.4 x 0.6 cm, volume 0.08 mL. ?? ? Nodule characteristics: ?? ? Composition: Solid (2). ?? ? Echogenicity: Isoechoic (1). ?? ? Shape: Not taller than wide (0). ?? ? Margins: Smooth (0). ?? ? Echogenic Foci: None (0).? ACR TI-RADS total points: 3 Previous: 3 ?? ? ACR TI-RADS category: 3 Previous: 3 ? Significant change in size (>/= 20% in 2 dimensions and minimal increase of 2 mm or 50% or greater increase in volume): No ?? ? Change in features: No ?? ? Change in ACR TI-RADS risk category: No 3.? Location: Left inferior medial. ?? ? Size: 1.6 x 0.7 x 0.9 cm, volume 0.48 mL. ?? ? Previously: 1.0 x 0.5 x 0.8 cm, volume 0.21 mL. ?? ? Nodule characteristics: ?? ? Composition: Solid (2). ?? ? Echogenicity: Hypoechoic (2). ?? ? Shape: Not taller than wide (0). ?? ? Margins: Smooth (0). ?? ? Echogenic Foci: None (0).? ACR TI-RADS total points: 4 Previous: 3 ?? ? ACR TI-RADS category: 4 Previous: 3 ? Significant change in size (>/= 20% in 2 dimensions and minimal increase of 2 mm or 50% or greater increase in volume): Yes ?? ? Change in features: Yes ?? ? Change in ACR TI-RADS risk category: Yes 4.? Location: Left inferior medial. ?? ? Size: 1.3 x 0.7 x 0.9 cm, volume 0.43 mL. ?? ? Previously: 1.1 x 0.7 x 0.9 cm, volume 0.32 mL. ?? ? Nodule characteristics: ?? ? Composition: Solid (2). ?? ? Echogenicity: Isoechoic (1). ?? ? Shape: Not taller than wide (0). ?? ? Margins: Smooth (0). ?? ? Echogenic Foci: None (0).? ACR TI-RADS total points: 3 Previous: 3 ?? ? ACR TI-RADS category: 3 Previous: 3 ? Significant change in size (>/= 20% in 2 dimensions and minimal increase of 2 mm or 50% or greater increase in volume): No ?? ? Change in features: No ?? ? Change in ACR TI-RADS risk category: No 5.? Location: Right inferior. ?? ? Size: 0.8 x 0.3 x 0.5 cm, volume 0.07 mL. ?? ? Previously: New since the previous study. ?? ? Nodule characteristics: ?? ? Composition: Solid/almost completely solid (2). ?? ? Echogenicity: Isoechoic (1). ?? ? Shape: Not taller than wide (0). ?? ? Margins: Smooth (0). ?? ? Echogenic Foci: None (0).? ACR TI-RADS total points: 3 ?? ? ACR TI-RADS category: 3 NODES: No lymphadenopathy is seen in the tissue surrounding the thyroid gland. Labs: Status post FNA with following cytology: Diagnosis A. Thyroid, left inferior nodule, fine needle aspiration: Non-diagnostic ([place] category I). COMMENT: The specimen is processed and examined, but non-diagnostic due to insufficient follicular cell cellularity. Rare follicular groups are seen. A repeat aspiration may be considered if clinically indicated. B. Thyroid, left upper nodule, fine needle aspiration: Benign ([place] category II). COMMENT: Review of the cytology preparation demonstrates a sparsely cellular specimen composed of few benign-appearing follicular cells and small lymphocytes suggestive of chronic lymphocytic ([place]) thyroiditis in the proper clinical setting. C. Thyroid, right inferior nodule, fine needle aspiration: Benign ([place] category II). COMMENT: Review of the cytology preparation demonstrates a mildly cellular specimen composed predominantly of small lymphocytes and few scattered follicular cells, oncocytes and histiocytes, suggestive of chronic lymphocytic ([place]) thyroiditis in the proper clinical setting Laboratory Tests 11/14/21 09:24 TSH 1.59 PFSH Medical History Asthma DM2 (diabetes mellitus, type 2) Dyslipidemia Dysphagia Essential hypertension Fibromyalgia Goiter Obesity due to excess calories Vitamin D deficiency Surgical History History of partial hysterectomy Family History Mother Spinal stenosis Father Hypertension Maternal Grandfather Colon cancer Lymphoma Maternal Grandmother No problems noted. Maternal Aunt Breast cancer Maternal Aunt Type 2 diabetes mellitus High cholesterol Social History Household Members: Spouse and Children Alcohol intake: current Patient Tobacco Use Status: Never used Tobacco Physical Exam Vital Signs: BMI result Body Mass Index 28.6 Assessment & Plan Assessment & Plan (1) Multinodular goiter: Code(s): E04.2 - Nontoxic multinodular goiter Plan: This is a 48-year-old white female with multinodular goiter status post FNA 2 left nodules and a right nodule with left inferior nodule containing inadequate cytology. I had a long discussion with the patient regarding different options. I talked about continued surveillance with ultrasound vs reaspiration of the left nodule. The patient is going to seek reaspiration of left nodule and may contact at [facility] in [place] for 2nd opinion. She appears to be clinically biochemically euthyroid Coding Level of Care Code Est Pt Level 3 (04611) Diagnoses Multinodular goiter E04.2
[2023-06-17 16:22] VITALS: BP 146/90; PULSE 90; BMI 28.6
== END 2023-06-17 17:12 | disposition home or self-care (01) ==
PROVIDERS: PCP Physician Assistant; Visit Provider Internal Medicine Endocrinology, Diabetes & Metabolism
DX: E04.2 Nontoxic multinodular goiter (principal)
CPT/HCPCS: 99213

== ENCOUNTER → 2023-06-17 16:12 | Outpatient (BNVA) | payer BC, SELFPAY | PROVIDERS: PCP Physician Assistant; Visit Provider Internal Medicine Endocrinology, Diabetes & Metabolism ==

== ENCOUNTER 2023-06-21 11:55 | Outpatient (REF) | payer BC, SELFPAY ==
[2023-06-21 15:04] LABS: Vitamin D 25-OH Total 54.6 ng/mL (>30)
[2023-06-21 15:14] LABS: Estimated Average Glucose 180 mg/dL; Hemoglobin A1c % 7.9 % (<6.0)
== END 2023-06-21 11:56 | disposition home or self-care (01) ==
LOC: HO.MANLDS 11:55
PROVIDERS: Visit Provider Physician Assistant
DX: E55.9 Vitamin D deficiency, unspecified (principal); E11.65 Type 2 diabetes mellitus with hyperglycemia
CPT/HCPCS: 36415; 82306; 83036

== ENCOUNTER 2023-07-30 09:10 | Outpatient (REF) | payer BC, SELFPAY ==
[2023-07-31 12:13] LABS: Lutenizing Hormone 4.4 mIU/mL
[2023-08-04 20:13] LABS: Estradiol Ultra Sensitive 119 pg/mL
[2023-08-05 20:14] LABS: Progesterone <0.1 ng/mL
== END 2023-07-30 09:11 | disposition home or self-care (01) ==
LOC: HO.MANLDS 09:10
PROVIDERS: Visit Provider Physician Assistant
DX: N95.1 Menopausal and female climacteric states (principal)
CPT/HCPCS: 36415; 82670; 83001; 83002; 84144

== ENCOUNTER 2023-10-08 08:53 | Outpatient (REF) | payer BC, SELFPAY ==
[2023-10-08 14:14] LABS: Alanine Aminotransferase 19 U/L (0-31); Alkaline Phosphatase 54 U/L (39-117); Anion Gap 14 (12-20); Aspartate Amino Transferase 18 U/L (5-31); Bilirubin Total 0.4 mg/dL (0.0-1.0); Blood Urea Nitrogen 17 mg/dL (9-16); Carbon Dioxide 28 mmol/L (22-29); Chloride 101 mmol/L (96-108); Cholesterol 200 mg/dL (<200); Estimated Glomerular Filt Rate > 60; Glucose Random 155 mg/dL (60-115); HDL Cholesterol 52 mg/dL (>40); LDL Cholesterol Calculated 122 mg/dL (<100); Potassium 4.1 mmol/L (3.3-5.1); Sodium 139 mmol/L (135-145); Total Protein 7.3 g/dL (6.5-8.0); Triglycerides 134 mg/dL (<150)
== END 2023-10-08 08:54 | disposition home or self-care (01) ==
LOC: HO.MANLDS 08:53
PROVIDERS: Visit Provider Physician Assistant
DX: E11.65 Type 2 diabetes mellitus with hyperglycemia (principal)
CPT/HCPCS: 36415; 80053; 80061; 83036

== ENCOUNTER 2023-12-15 09:05 | Outpatient (REF) | payer BC, SELFPAY ==
[2023-12-15 14:32] LABS: Erythrocyte Sedimentation Rate 20 MM/HR (0-20)
[2023-12-16 04:23] LABS: Rheumatoid Factor < 13.0 IU/mL (<15.0)
[2023-12-16 21:38] LABS: Anti DNA DS Antibody <1 IU/mL
[2023-12-16 22:34] LABS: Herpes Simplex Type 2 IgG <0.90 index
[2023-12-17 11:52] LABS: Anti Nuclear Antibody Screen NEGATIVE (NEGATIVE)
[2023-12-17 14:39] LABS: Cyclic Citrullinated Peptide <16 UNITS
== END 2023-12-15 09:06 | disposition home or self-care (01) ==
LOC: HO.MANLDS 09:05
PROVIDERS: Visit Provider Physician Assistant
DX: B02.9 Zoster without complications (principal); M54.6 Pain in thoracic spine
CPT/HCPCS: 36415; 85652; 86038; 86140; 86200; 86225; 86431; 86695; 86696

== ENCOUNTER 2024-01-10 09:15 | Outpatient (REF) | payer BC, SELFPAY ==
[2024-01-10 14:01] LABS: Estimated Average Glucose 183 mg/dL
== END 2024-01-10 09:16 | disposition home or self-care (01) ==
LOC: HO.MANLDS 09:15
PROVIDERS: Visit Provider Physician Assistant
DX: E11.65 Type 2 diabetes mellitus with hyperglycemia (principal)
CPT/HCPCS: 36415; 83036

== ENCOUNTER 2024-02-21 14:54 | Outpatient (REF) | payer BC, SELFPAY ==
[2024-02-21 17:44] LABS: Appearance Urine Clear; Color Urine Yellow; Glucose Urine UA 250 mg/dL (Negative); Leukocyte Esterase Urine Negative (Negative); Nitrite Urine Negative (Negative); PH 5.5 (5.0-9.0); Urine Blood Negative (Negative); Urine Ketones Negative (Negative); Urine Protein Negative (Neg-Trace)
== END 2024-02-21 14:55 | disposition home or self-care (01) ==
LOC: HO.MANLDS 14:54
PROVIDERS: Visit Provider Physician Assistant
DX: R30.0 Dysuria (principal)
CPT/HCPCS: 81003

== ENCOUNTER 2024-03-27 10:31 | Outpatient (REF) | payer BC, SELFPAY | END 2024-03-27 10:32 | disposition home or self-care (01) | LOC: HO.MANLDS 10:31 | PROVIDERS: Visit Provider Physician Assistant | DX: Z91.013 Allergy to seafood (principal) | CPT/HCPCS: 36415; 86003 ==

== ENCOUNTER 2024-03-30 13:04 | Outpatient (REF) | payer BC, SELFPAY ==
--- NOTE | ~2024-03-30 | US_ITS ---
EXAMINATION: US THYROID CLINICAL INFORMATION: Thyroid nodule. COMPARISON: Ultrasound-guided thyroid biopsy 06/01/2023. Thyroid ultrasound 02/16/2023. TECHNIQUE: Linear transducer grayscale and color Doppler examination with attention to the region of the thyroid. FINDINGS: SIZE: Measurements of the thyroid lobes and nodules are given in sagittal, anteroposterior and transverse dimensions respectively. Right Thyroid Lobe: 4.2 x 1.3 x 1.2 cm, volume 3.3 mL. Previously 4.8 x 1.8 x 1.6 cm, volume 7.2 mL. Parenchyma: The gland echotexture is homogeneous. Thyroid vascularity is increased. Left Thyroid Lobe: 3.7 x 1.3 x 1.3 cm, volume 3.4 mL. Previously 5.1 x 1.3 x 1.5 cm, volume 5.2 mL. Parenchyma: The gland echotexture is homogeneous. Thyroid vascularity is increased. Isthmus: 0.60 cm in maximum AP dimension. Previously 0.60 cm. Estimated total number of nodules greater than or equal to 1 cm: 1. Button Reclaimer nodules are described as follows: 1. Location: Right isthmus. Size: 0.70 x 0.44 x 0.56 cm, volume 0.09 mL. Previously: 1.0 x 0.60 x 0.60 cm, volume 0.19 mL. Nodule characteristics: Composition: Solid (2). Echogenicity: Hyperechoic (1). Shape: Not taller than wide (0). Margins: Smooth (0). Echogenic Foci: None (0). ACR TI-RADS total points: 3 Previous: 3 ACR TI-RADS category: 3 Previous: 3 Significant change in size (>/= 20% in 2 dimensions and minimal increase of 2 mm or 50% or greater increase in volume): No Change in features: No Change in ACR TI-RADS risk category: No 2. Location: Right inferior. Size: 0.40 x 0.30 x 0.40 cm, volume 0.02 mL. Previously: 0.60 x 0.40 x 0.60 cm, volume 0.07 mL. Nodule characteristics: Composition: Mixed cystic and solid (1). Echogenicity: Cannot be determined (1). Shape: Not taller than wide (0). Margins: Smooth (0). Echogenic Foci: None (0). ACR TI-RADS total points: 2 Previous: 3 ACR TI-RADS category: 2 Previous: 3 Significant change in size (>/= 20% in 2 dimensions and minimal increase of 2 mm or 50% or greater increase in volume): No Change in features: Yes. Increased cystic component. Change in ACR TI-RADS risk category: Yes 3. Location: Right mid. Size: 0.44 x 0.24 x 0.37 cm, volume 0.02 mL. Previously: Not seen on the previous study. Nodule characteristics: Composition: Cystic(0) with colloid. ACR TI-RADS total points: 0 ACR TI-RADS category: 1 4. Location: Right mid. Size: 0.28 x 0.23 x 0.27 cm, volume 0.01 mL. Previously: Not seen on the previous study. Nodule characteristics: Composition: Cystic(0) with colloid. ACR TI-RADS total points: 0 ACR TI-RADS category: 1 5. Location: Left mid. Unclear if this correlates with nodules 3 vs 4 of the prior examination; but appears increased in size. Size: 1.7 x 1.6 x 0.94 cm, volume 1.4 mL. Nodule characteristics: Composition: Solid (2). Echogenicity: Hypoechoic (2). Shape: Taller than wide (3). Margins: Smooth (0). Echogenic Foci: Punctate echogenic foci (3). ACR TI-RADS total points: 10 Previous: 4 ACR TI-RADS category: 5 Previous: 4 NODES: No lymphadenopathy is seen in the tissue surrounding the thyroid gland. US/US thyroid IMPRESSION: Hypervascular gland with multiple nodules, the majority of which are subcentimeter in size, for which no imaging follow-up is recommended. However, there is a dominant 1.7 cm left TR-5 mid gland nodule that demonstrates increase in size, and that was previously biopsied on 06/01/2023. Recommend correlation with the pathology results. ACR TI-RADS RECOMMENDATION REFERENCE: Ultrasound-guided fine-needle aspiration, follow up ultrasound, no further followup. * TR1 (0 point) and TR2 (2 points): No FNA or followup * TR3 (3 points): FNA if more than or equal to 2.5 cm in maximum dimension, follow up ultrasound in 1, 3 and 5 years if 1.5 to 2.4 cm in maximum dimension. * TR4 (4-6 points): FNA if more than or equal to 1.5 cm in maximum dimension, follow up ultrasound in 1, 2, 3 and 5 years if 1 to 1.4 cm in maximum dimension. * TR5 (more than or equal to 7 points): FNA if more than or equal to 1 cm in maximum dimension, follow up ultrasound every year for 5 years if 0.5 to 0.9 cm in maximum dimension. * TR3, TR4 or TR5 nodules that are below the size threshold for follow up receive no followup.
== END 2024-03-30 13:05 | disposition home or self-care (01) ==
LOC: HO.HMGCX 13:04
PROVIDERS: PCP Physician Assistant; Visit Provider Physician Assistant
DX: E04.1 Nontoxic single thyroid nodule (principal)
CPT/HCPCS: 76536

== ENCOUNTER 2025-01-09 11:19 | Outpatient (REF) | payer BC, SELFPAY ==
[2025-01-09 13:12] LABS: MANUAL DIFF FLAG NO
[2025-01-09 13:29] LABS: Basophils Absolute Auto 0.1 X10*3/uL (0.0-0.2); Basophils Percent Auto 0.7 % (0-2); Eosinophils Absolute Auto 0.1 X10*3/uL (0.0-0.4); Eosinophils Percent Auto 1.9 % (0-4); Hematocrit 41.9 % (37.0-47.0); Hemoglobin 14.2 g/dl (12.0-16.0); Imm Gran Abs Auto 0.02 X10*3/uL (0.00-0.03); Imm Gran Pct Auto 0.3 % (0.0-0.4); Lymphocytes Absolute Auto 2.3 X10*3/uL (1.2-4.9); Lymphocytes Percent Auto 34.3 % (20-40); Mean Corpuscular HGB Conc 33.9 g/dl (31.0-35.0); Mean Corpuscular Hemoglobin 29.6 pg (27.0-33.0); Mean Corpuscular Volume 87.5 fL (80.0-98.0); Mean Platelet Volume 10.8 fL (9.4-12.3); Monocytes Absolute Auto 0.4 X10*3/uL (0.1-1.2); Monocytes Percent Auto 5.2 % (2-11); Neutrophils Absolute Auto 3.9 x10*3/uL (2.0-8.3); Neutrophils Percent Auto 57.6 % (45-73); Platelet Count 255 X10*3/uL (160-400); Red Blood Count 4.79 X10*6/uL (4.20-5.50); Red Cell Distribution Width 12.4 % (11.0-16.0); White Blood Count 6.7 X10*3/uL (4.8-10.8)
--- OUTSIDE RECORDS SUMMARY | 2025-01-09 13:54 | XMS_ITS | Clinical Summary ---
Author Organization [facility] Address [address] [place] [address] Care Team Providers Care Shank Stitcher Name Role Phone Donald Hill Primary Care Provider [phone] Allergies Active Allergy Reactions Criticality Noted Date Comments Azithromycin Hives,Unknown 06/16/2012 Cefaclor Itching,Unknown 06/16/2012 Clindamycin Dyspnea,Respiratory Distress,Unknown High 06/16/2012 Codeine Vomiting,Unknown,Itc hin g 06/16/2012 Hydrocodone Rash 10/28/2022 Hydromorphone Hives 05/16/2021 Levofloxacin Anaphylaxis,Dyspnea High 06/16/2012 Mineral Oil-Hydrophil Petrolat Photosensitivity rash 06/27/2022 Other reaction(s): third degree giron Reaction to adhesive remover Morphine Hives,Unknown 06/16/2012 Xvkhtgj-Dop-Wcn Reductase Inhibitors Joint pain Medium 05/16/2021 Pt can tolerate Rosuvastatin Medications propranolol LA (INDERAL LA) 80 mg capsule Take 1 capsule by mouth nightly. 10/21/19 23 Active albuterol (PROAIR HFA,VENTOLIN HFA) 90 mcg inhaler Inhale 2 puffs by mouth every 4 hours as needed. 01/01/20 22 Active Symbicort 80-4.5 mcg/actuation inhaler Inhale 2 puffs by mouth 2 times a day as needed. 10/29/19 22 Active EPINEPHrine (EPIPEN) 0.3 mg/0.3 mL injection syringe epinephrine 0.3 mg/0.3 mL injection, auto-injector Active metFORMIN (GLUCOPHAGE) 1,000 mg tablet Take 1,000 mg by mouth 2 times a day. 10/19/19 Active ondansetron ODT (ZOFRAN ODT) 8 mg disintegrating tablet 2 times a day as needed. Active rosuvastatin (CRESTOR) 5 mg tablet once a day. 10/21/19 Active Active Problems Problem Noted Date Diagnosed Date Irritable bowel syndrome with diarrhea 3 Assessment & Plan (03/31/2023 1:50 PM EDT): Patient with nausea, abdominal pain, and diarrhea that usually related to eating. Patient symptoms likely secondary to IBS-D. During her last visit we asked the patient to follow-up FODMAP diet, take Benefiber, and amitriptyline. Patient was not able to follow-up FODMAP diet, took Benefiber for couple of days then self discontinued, and tried amitriptyline with no improvement. She is currently on Imodium for the diarrhea which makes her constipated sometimes. We will hold on Imodium, and amitriptyline. We will start Viberzi. We asked her to hold on metformin for 2 weeks in case that was the reason for her diarrhea and abdominal pain. We will obtain right upper quadrant ultrasound to rule out cholelithiasis and possible biliary colic. - Right upper quad ultrasound - Start [id number] mg daily - Advised to follow FODMAP diet - Hold Imodium and amitriptyline - Hold metformin for 2 weeks if no change then resume - RTC in 6 months for follow-up Sclerosing mesenteritis 10/28/2022 Assessment & Plan (03/31/2023 1:17 PM EDT): Patient was found to have sclerosing mesenteritis and lymphadenopathy on the CTAP from April 2022, which was obtained for symptoms of nausea, abdominal pain, and diarrhea. Patient received 2 courses of steroids with no improvement in her symptoms but showed improvement on the CTAP. Most recent CT AP from January 2023 showed mildly enlarged lymph nodes at the root of the mesentery the largest was 8 mm, but was negative for inflammatory stranding to suggest sclerosing mesenteritis. CT[facility] done at [facility] and we will ask our radiologist to review the images. We will place a consult for IR for possible lymph node biopsy. We will hold on further treatment given there is no signs of inflammation and we are not sure why he has this slightly elevated lymph nodes at the mesentery. - Upload CTAP images - IR consult for possible lymph node biopsy - Repeat CTAP in 3 to 4 months to follow-up on these lymph nodes Assessment & Plan (10/28/2022 12:49 PM EST): Patient presented with several months of abdominal pain, nausea, bloating, and diarrhea. Patient also reports fatigue, weight loss, and episodes of night sweat. Patient was found in April 2022 to have sclerosing mesenteritis with subcentimeter lymphadenopathy. Patient had extensive work-up for the diarrhea including celiac panel and infectious work-up which came back unremarkable. Patient underwent upper endoscopy, video capsule endoscopy, and colonoscopy with biopsies which all came within normal limits. Patient received 2 courses of steroids in April 2022 and in September 2022 with no improvement during or after the completion of steroid course. Patient had repeat CTAP in July 2022 which showed some improvement in her sclerosing mesenteritis and she continued to have lymphadenopathy. Patient's bloating and diarrhea and likely related to sclerosing mesenteritis. It is likely postinfectious IBS-D. We will start the patient on amitriptyline, rifaximin, Benefiber, peppermint oil, and FODMAP diet. Patient's other symptoms such as abdominal pain, fatigue, weight loss, and sweating might be secondary to sclerosing mesenteritis. And to confirm the diagnosis we will refer patient to general surgery for possible excisional biopsy for one of the lymph nodes. We will repeat cross-sectional imaging in 2 to 3 months to follow-up on these lymph nodes. - Start amitriptyline 10 mg nightly - Start rifaximin 550 twice daily - Start Benefiber - Patient was counseled about FODMAP diet and handout was given - Peppermint oil - Obtain VCE videos from her outpatient basket hand weaver - Repeat CTAP in 2 to 3 months - General surgery referral for possible excisional biopsy of the lymph node (preferably closer to her home) - RTC in 3 months for follow-up Resolved Problems Problem Noted Date Diagnosed Date Resolved Date Diarrhea 10/28/2022 03/31/2023 Social History Tobacco Use Types Packs/Day Years Used Date Smoking Tobacco: Never Passive Smoke Exposure: Past Smokeless Tobacco: Never Tobacco Cessation:Counseling Given: Not Answered Comments Unknown Sex and Gender Information Value Date Recorded Sex Assigned at Female 03/30/2023 11:55 AM EDT Legal Sex Female 7:35 AM EDT Gender Identity Female 03/30/2023 11:55 AM EDT Sexual Orientation Choose not to disclose 2022 11:55 AM EDT Last Filed Vital Signs Vital Sign Reading Time Taken Comments Blood Pressure 164/94 03/31/2023 11:05 AM EDT Pulse 86 03/31/2023 11:05 AM EDT Temperature 36.2 ??C (97.1 ??F) 03/31/2023 11:05 AM E DT Respiratory Rate 18 03/31/2023 11:05 AM EDT Oxygen Saturation - - Inhaled Oxygen Concentration - - Weight 86.6 kg (191 lb) 03/31/2023 11:05 AM EDT Height 165.1 cm (5' 5 ) 10/28/2022 8:44 AM EST Body Mass Index 31.78 10/28/2022 8:44 AM EST Plan of Treatment Health Maintenance Due Date Last Done Comments Cervical Cancer Screening 1973 Cologuard 1973 Colon Cancer Screening 1973 Colonoscopy 1973 FOBT / Fit Test 1973 HIV Screening 1973 HPV and Pap Smear 1973 Hepatitis C Screening 1973 Pap Smear 1973 Sigmoidoscopy 1973 Hepatitis B Vaccines (1 of 3 - 19+ 3-dose series) 02/19/1992 Pneumococcal Vaccine: 50+ Ye ars (1 of 2 - PCV) 02/19/1992 Mammogram 03/14/2020 03/14/2018 Zoster Vaccines (1 of 2) 2023 COVID-19 Vaccine (5 - 2023-2 5 season) 2024 08/07/2022, 09/18/2021, 01/30/2021, Additional history exists DTaP,Tdap,and Td Vaccines (2 - Td or Tdap) 06/18/2024 06/18/2014 Alcohol/Substance Use Screening 10/04/2024 Depression Screening and Follow-Up 10/04/2024 Social Drivers of Health Gladys ual Screening 10/04/2024 Influenza Vaccine (Season Ended) 2025 08/07/2022, 07/30/2021, 05/31/2020, Additional history exists RSV Vaccine (60+ years old a nd patients) (1 - 1-dose 75+ series) 02/19/2048 Insurance [facility] PPO/EPO Care Teams Shank Stitcher Relationship Specialty Start Date End Date Donald Hill [address] [place] [address] [phone] PCP - General Internal Medicine 07/30/22
--- OUTSIDE RECORDS SUMMARY | 2025-01-09 13:54 | XMS_ITS | Continuity of Care Document ---
Author Organization [facility], [facility] Address [address] [place] [address] Assessment No assessment recorded. Plan of Treatment Reminders Order Date Submit Date Provider Last Modified By Organization Details Last Modified Time Details Appointments FOLLOW UP 15 2024 10:45A M SHEN ALLEN Not available Not available Not available Lab TSH + free T4, serum 2024 025 [facility], [address] [place] [address], [id number], 01/09/2025 11:11:12 thyroid peroxidas e (tpo) Ab, serum 2024 025 [facility], [address] [place] [address], [id number], 01/09/2025 11:11:12 tsi (thyroid- stimulati ng immunoglo bulin), serum 2024 025 [facility], [address] [place] [address], [id number], 01/09/2025 11:11:12 ESR (erythroc yte sedimenta tion rate), blood 2024 025 [facility], [address] [place] [address], [id number], 01/09/2025 11:11:13 C reactive protein, QN, serum or plasma 2024 025 [facility], [address] [place] [address], [place], [id number], 01/09/2025 11:11:12 CBC w/ auto diff 2024 025 [facility], [address] [place] [address], [place], [id number], 01/09/2025 11:11:12 Referral None recorded. Procedures None recorded. Surgeries None recorded. Imaging None recorded. Medication Orders None recorded. Patient TargetsNo targets recorded. Patient InstructionsNo instructions recorded. Reason for Referral None Reported. Problems Name Problem SNOMED Code Status Onset Date Resolution Date Notes Provider Name and Address Organization Details Recorded Time COVID-19 418512825 Active 2021 Not Available [facility] 3 06:46:24 Hordeolum externum of lower eyelid of right eye 604595327246 104 Active 2021 Not Available [facility] 3 06:46:24 Diarrhea 23279250 Active 2021 Not Available [facility] 3 06:46:24 Abdominal pain 84457532 Active 2021 Not Available [facility] 3 06:46:24 Nausea and vomiting 95376691 Active 2021 Not Available [facility] 3 06:46:24 Sclerosin g mesenteri tis 021047378507 9100 Active 2021 Not Available [facility] 3 06:46:24 Exacerbat ion of intermitt ent asthma 773101258 Active 2021 Not Available [facility] 3 06:46:24 Migraine 98807151 Active 2021 Not Available [facility] 3 06:46:24 Type 2 diabetes mellitus 81597853 Active 2017 Not Available [facility] 3 06:46:24 Low back pain 696279130 Active 2017 LS Not Available [facility] 3 06:46:24 Asthma 958257585 Active 2017 Not Available [facility] 3 06:46:24 Hyperlipi demia 09038006 Active 2017 Not Available [facility] 3 06:46:24 Fibromyal shane 580392025 Active 2017 Not Available [facility] 3 06:46:24 Cervical lymphaden opathy 002093198 Active 2021 Not Available [facility] 3 06:46:24 Essential hypertens ion 85699990 Active 2017 Not Available [facility] 3 06:46:24 Iliotibia l band friction syndrome of left knee 547978749399 102 Active 2021 Not Available [facility] 3 06:46:24 Lateral epicondyl itis of left humerus 802164855073 100 Active 2021 Not Available [facility] 3 06:46:24 Seborrhei c keratosis 111287133 Active 2021 Not Available [facility] 3 06:46:24 Pain in throat 243497834 Active 2021 Not Available [facility] 3 06:46:24 Pain of left hip joint 833587510267 100 Active 2022 Not Available [facility] 3 06:46:24 Mass of mcclure 540735758 Active 2022 Not Available [facility] 3 06:46:24 Kidney lesion 535124125346 00 Active 2022 Not Available [facility] 3 06:46:24 Pain of nose 762311480 Active 2022 Not Available [facility] 3 06:46:24 Menopausa l flushing 820255375 Active 2022 Not Available [facility] 3 06:46:24 Subclinic al hypothyro idism 10244164 Active 2022 Not Available [facility] 3 06:46:24 Streptoco ccal sore throat 59220770 Active 2022 Not Available [facility] 3 06:46:24 Lateral epicondyl itis of right humerus 105692570146 107 Active 2022 SHEN ALLEN [address] [place], [address], [facility] 3 16:29:54 Pain of right elbow joint 088331048069 43210 Active 2023 SHEN ALLEN [address] [place], [address], [facility] 4 16:39:39 Herpes zoster 7977043 Active 2023 SHEN ALLEN [address] [place], [address], [facility] 4 13:56:07 Thoracic back pain 155338820 Active 2023 SHEN ALLEN [address] [place] [address], [address], [facility] 4 13:57:51 Dysuria 89753891 Active 2023 SHEN ALLEN [address] [place] [address], [address], [facility] 4 14:21:23 Thyroid nodule 210987399 Active 2023 SHEN ALLEN [address] [place] [address], [address], [facility] 4 14:31:51 Sclerosin g peritonit is 46327594 Active 2023 SHEN ALLEN [address] [place] [address], [address], [facility] 4 10:06:09 Neck pain 34066775 Active 2023 SHEN ALLEN [address] [place] [address], [address], [facility] 4 10:13:00 Degenerat ion of lumbar intervert ebral disc 75847236 Active 2023 SHEN ALLEN [address] [place] [address], [address], [facility] 4 15:10:43 Esophagea l dysphagia 28268683 Active 2023 SHEN ALLEN [address] [place], [address], [facility] 4 16:31:41 Candidias is of vagina 54842950 Active 2023 SHEN ALLEN [address] [place] [address], [address], [facility] 4 11:50:25 Acute otitis media 6022912 Active 2023 SHEN ALLEN [address] [place] [address], [address], [facility] 4 11:54:58 Pain of left shoulder joint 915008698329 07244 Active 2024 SHEN ALLEN [address] [place] [address], [address], [facility] 5 08:48:01 Muscle pain 25126168 Active 2024 SHEN ALLEN [address] [place] [address], [address], [facility] 5 11:53:00 Spasm of back muscles 940417539 Active 2024 SHEN ALLEN [address] [place] [address], [address], [facility] 5 11:53:12 Degenerat ion of thoracic intervert ebral disc 40243530 Active 2024 SHEN ALLEN [address] [place] [address], [address], [facility] 5 10:13:29 Fatigue 12334239 Active 2024 SHEN ALLEN [address] [place] [address], [address], [facility] 5 11:03:22 Clavicle pain 537640738 Active 2024 SHEN ALLEN [address] [place] [address], [address], [facility] 5 11:08:06 Clavicle pain 319415812 Active 2024 SHEN ALLEN [address] [place], [address], [facility] 5 11:11:11 Vitamin D deficienc y 63381625 Active 2017 Not Available [facility] 3 06:46:24 Problem Notes None recorded. Procedures Surgical History Date Name Laterality Status Provider Name and Address Organization Details Recorded Time 10/04/19 19 Partial Hysterectomy completed January JULIA Manjarrez [address] [place], [address], [facility] 03/15/2019 09:47:37 Imaging Results None recorded. Procedure Notes None recorded. Medical Equipment None Reported. Allergies Allergen ID Allergen Name Allergen Category Reaction Reaction Severity Criticality Documentation Date Start Date Code Code System Note Provider Name and Address Organization Details Recorded Time 569 Ceclor medicatio n Not available Not available Not available 12/22/2017 35989 5 [facility] 8 09:[facility]34 570 clindamyc in Not available Not available Not available Not available 12/22/2017 2582 [facility] 8 09:31:51 571 codeine medicatio n Not available Not available Not available 12/22/2017 2670 [facility] 8 09:33:50 572 Dilaudid medicatio n Not available Not available Not available 12/22/2017 95902 3 [facility] 8 09:34:08 573 hydrocodo ne Not available Not available Not available Not available 12/22/2017 5489 RxAdi fischer [facility] 8 09:34:26 574 morphine medicatio n Not available Not available Not available 12/22/2017 7052 RxNotia fischer [facility] 8 09:35:00 575 Product containin g 3-hydroxy -3-methyl glutaryl- coenzyme A reductase inhibitor (product) medicatio n Not available Not available Not available 12/22/2017 49781 009 SNOMED bruis ing, [facility] 8 09:41:08 576 Tylox medicatio n Not available Not available Not available 12/22/2017 19764 5 [facility] 8 09:35:21 577 azithromy marcella medicatio n Not available Not available Not available 12/22/2017 11825 RxNorm kelton Kwon [facility] 8 09:41:52 578 Levaquin medicatio n anaphylax is Not available Not available 12/22/2017 37997 2 [facility] 8 09:37:18 8261 Iodinated contrast media (substanc e) medicatio n hives moderate Not available 05/17/20242023 84227 2003 SNOMED Sade Gannon [facility] 4 15:25:09 8375 shellfish derived food,medi cation dyspnea moderate Not available 07/03/2024 [address] [facility] SHEN ALLEN [address] [place] [address], [address] [facility] 4 16:14:32 Medications Name Sig Start Date Stop Date Status Note LastModified by Organization Details LastModified Time celecoxib 200 mg capsule Take 1 capsule every day by oral route for 90 days. 11/10 completed Not Available Not Available Not Available medroxypr ogesteron e 10 mg tablet 06/21 completed Not Available Not Available Not Available prednison e 10 mg tablet 5 TABS X 3 DAYS 4 TABS X 3 DAYS 3 TABS X 3 DAYS 2 TABS X 3 DAYS 1 TAB X 3 DAYS 12/13 completed Not Available Not Available Not Available doxycycli ne hyclate 100 mg capsule Take 1 capsule twice a day by oral route for 7 days. 08/19 completed Not Available Not Available Not Available atorvasta tin 10 mg tablet TAKE 1 TABLET ONCE PER DAY 07/17 completed 06/29/22 - restarte d every other day Not Available Not Available Not Available fluconazo le 150 mg tablet TAKE 1 TABLET BY MOUTH EVERY 72 HOURS FOR 3 DAYS 11/10 completed Not Available Not Available Not Available benzonata te 200 mg capsule TAKE 1 CAPSULE BY MOUTH THREE TIMES A DAY NEEDED FOR 14 DAYS 02/10 completed Not Available Not Available Not Available valacyclo vir 1 gram tablet TAKE 1 TABLET BY MOUTH EVERY DAY FOR 14 DAYS 02/10 completed Not Available Not Available Not Available sumatript an 25 mg tablet TAKE 1 TABLET BY MOUTH DIRECTED 02/10 completed Not Available Not Available Not Available prednison e 20 mg tablet TAKE 3 TABLETS BY MOUTH ONCE DAILY FOR 5 DAYS 07/30 completed Not Available Not Available Not Available metronida zole 250 mg tablet 06/03 completed Not Available Not Available Not Available tramadol 50 mg tablet Take 1 tablet every 6 hours by oral route as needed for 7 days. 02/10 completed Not Available Not Available Not Available ondansetr on 8 mg disintegr ating tablet PLACE 1 TABLET TWICE A DAY BY TRANSLIN GUAL ROUTE FOR 14 DAYS. 08/03 completed Not Available Not Available Not Available amoxicill in 875 mg tablet TAKE 1 TABLET BY MOUTH EVERY 12 HOURS FOR 10 DAYS 12/13 completed Not Available Not Available Not Available betametha sone valerate 0.1 % topical cream APPLY A THIN LAYER TO THE AFFECTED AREA(S) BY TOPICAL ROUTE ONCE DAILY 11/25 completed Not Available Not Available Not Available amitripty line 10 mg tablet TAKE 1 TABLET BY MOUTH EVERY DAY AT NIGHT 02/10 completed Not Available Not Available Not Available hyoscyami ne sulfate 0.125 mg tablet 07/21 completed Not Available Not Available Not Available metformin 1,000 mg tablet TAKE 1 TABLET TWICE A DAY 05/16 completed Not Available Not Available Not Available propranol ol ER 80 mg capsule,2 4 hr,extend ed release take 1 capsule by mouth once a day 11/10 completed Not Available Not Available Not Available polymyxin B sulfate 10,000 unit-trim ethoprim 1 mg/mL eye drops INSTILL 1 DROP INTO AFFECTED EYE(S) BY OPHTHALM IC ROUTE EVERY 6 HOURS 09/12 completed Not Available Not Available Not Available ergocalci ferol (vitamin D2) 1,250 mcg (50,000 unit) capsule TAKE 2 CAPSULES BY MOUTH ONCE A WEEK 11/25 completed Not Available Not Available Not Available epinephri ne 0.3 mg/0.3 mL injection , auto-inje ctor 0.3 mg SC/IM x1; Info: may repeat dose x1 after 5-15min active Not Available Not Available No t Available albuterol sulfate HFA 90 mcg/actua tion aerosol inhaler INHALE TWO PUFFS BY MOUTH EVERY 4 HOURS NEEDED FOR COUGH AND FOR WHEEZING active Not Available Not Available No t Available fluocinon fuad 0.05 % topical cream 06/03 completed Not Available Not Available Not Available metformin ER 500 mg tablet,ex tended release 24 hr TAKE 1 TABLET DAILY active Not Available Not Available No t Available naproxen 500 mg tablet Take 1 tablet twice a day by oral route. 08/19 completed Not Available Not Available Not Available amoxicill in 875 mg-potass ium clavulana te 125 mg tablet TAKE 1 TABLET BY MOUTH TWICE A DAY active Not Available Not Available No t Available amoxicill in 500 mg-potass ium clavulana te 125 mg tablet TAKE 1 TABLET BY MOUTH EVERY 12 HOURS FOR 7 DAYS 08/03 completed Not Available Not Available Not Available neomycin 3.5 mg/g-poly myxin B 10,000 unit/g-de xameth 0.1 % eye oint PLEASE SEE ATTACHED FOR DETAILED DIRECTIO NS 05/04 completed Not Available Not Available Not Available cyclobenz aprine 5 mg tablet TAKE 1 TABLET BY MOUTH THREE TIMES A DAY NEEDED FOR 14 DAYS active Not Available Not Available No t Available rosuvasta tin 5 mg tablet TAKE 1 TABLET BY MOUTH EVERY DAY 11/10 completed Not Available Not Available Not Available fenofibra te 160 mg tablet TAKE 1 TABLET BY MOUTH EVERY DAY 02/10 completed Not Available Not Available Not Available Januvia 100 mg tablet Take 1 tablet every day by oral route for 90 days. 03/15 completed Not Available Not Available Not Available budesonid e-formote rol HFA 80 mcg-4.5 mcg/actua tion aerosol inhaler use 2 inhalati ons twice a day 2023 active Not Available Not Available Not Avai lable cholecalc iferol (vitamin D3) 1,250 mcg (50,000 unit) capsule TAKE 1 CAPSULE BY MOUTH ONCE PER WEEK 02/10 completed Not Available Not Available Not Available Symbicort 11/25 completed Not Available Not Available Not Available Xifaxan 550 mg tablet TAKE 1 TABLET BY MOUTH TWICE A DAY FOR 2 WEEKS 02/10 completed Not Available Not Available Not Available Aerochamb er Plus Flow-Vu USE WITH INHALER DIRECTED active Not Available Not Available No t Available red yeast rice 600 mg tablet Take 2 tablets every day by oral route. 11/25 completed Not Available Not Available Not Available Jardiance 10 mg tablet 05/04 completed Not Available Not Available Not Available Trulicity 0.75 mg/0.5 mL subcutane ous pen injector INJECT 0.75 MG SUBCUTAN EOUSLY ONCE A WEEK 02/10 completed holding Not Available Not Available Not Available Fluzone Quad (P F) 60 mcg(15 mcgx4)/0. 5 mL intramusc ular syringe 03/04 completed Not Available Not Available Not Available Fluzone Quad (PF) 60 mcg (15 mcg x 4)/0.5 mL IM syringe 03/04 completed Not Available Not Available Not Available FreeStyle Brent 2 Sensor kit active Not Available Not Available Not Available Flublok Quad (PF) 180 mcg (45 mcg x 4)/0.5 mL IM syringe 03/04 completed Not Available Not Available Not Available Flowflex COVID-19 Antigen Home Test kit 02/10 completed Not Available Not Available Not Available molnupira vir 200 mg capsule (EUA) TAKE 4 CAPSULES EVERY 12 HOURS BY MOUTH DIRECTED FOR 5 DAYS. 05/04 completed Not Available Not Available Not Available Vitals Date Recorded Body height Body mass index (BMI) Body weight Heart rate Oxygen saturation Oxygen saturation in Arterial blood by Pulse oximetry Systolic blood pressure Diastolic blood pressure Provider Name and Address Organization Details Last Updated DateTime 5 163.83 cm 24.8 kg/m2 55222.0 8 g 74 /min 95 % 95 % 148 mm[Hg] 94 mm[Hg] [facility] 5 10:54:55 Social History Question Answer Notes LastModified by Organizat ion Details LastModified Time Tobacco Smoking Status Never Smoker Not Available [facility] 08/06/2020 03:36:23 What Was The Date Of Your Most Recent Tobacco Screening? 01/09/2025 [email or web address] Information not available 01/09/2025 Sex: Unknown Functional Status None recorded. Mental Status None recorded. Family History Nothing Reported. Medical History No medical history recorded. Gynecological HistoryNo gynecological history recorded. Obstetrics History GPAL:G 0 P 0 0 0 0 Immunizations Vaccine Type Date Status Note Provider Nam e and Address Organization Details Recorded Time COVID-19, mRNA, LNP-S, PF, 100 mcg/0.5mL dose or 50 mcg/0.25mL dose 1 completed Not Available [facility] 08/18/2023 06:46:25 COVID-19, mRNA, LNP-S, PF, 100 mcg/0.5mL dose or 50 mcg/0.25mL dose 1 completed Not Available [facility] 08/18/2023 06:46:25 COVID-19, mRNA, LNP-S, PF, 100 mcg/0.5mL dose or 50 mcg/0.25mL dose 1 completed Not Available [facility] 08/18/2023 06:46:25 Influenza, split virus, quadrivalent, preservative 1 completed Not Available [facility] 08/18/2023 06:46:25 Influenza, split virus, quadrivalent, preservative 2 completed Not Available [facility] 08/18/2023 06:46:25 COVID-19, mRNA, LNP-S, PF, 30 mcg/0.3 mL dose 2 completed Not Available [facility] 08/18/2023 06:46:25 Influenza, split virus, quadrivalent, preservative 8 completed Not Available [facility] 08/18/2023 06:46:25 influenza, unspecified formulation 4 completed [facility] 07/12/2024 12:12:30 SARS-COV-2 (COVID-19) vaccine, UNSPECIFIED 4 completed Sadeparish fischer [facility] 07/12/2024 12:12:37 Influenza, split virus, quadrivalent, preservative 9 completed Not Available [facility] 08/18/2023 06:46:25 Influenza, split virus, quadrivalent, preservative 0 completed Not Available [facility] 08/18/2023 06:46:25 Past Encounters Encounter ID Performer Location Encounter Start Date Encounter Closed Date Diagnosis/Indication Diagnosis SNOMED-CT Code Diagnosis ICD10 Code Diagnosis Note [id number] SHEN ALLEN [facility] [address],[place] [address] 01/09/2025 10:47:15 01/09/2025 11:13:33 Thyroid nodule 637888538 E04.1 needs US in one year Fatigue 23695998 R53.83 set up with f/u lab work Clavicle pain 702152628 M25.511 swelling oh, R>L Health Concerns Section Related Observation LastModified by Organization Detai ls LastModified Time None Recorded Concern Status LastModified by Organization Details LastModified Time None Recorded Payers Encounter Date Sequence Insurance Name Policy Number Policy Gonzalez Covered Member ID Gonzalez Member ID Guarantor Name 01/09/2025 1 [place] ([place]) [id number] Zaheer Moyer [id number] Cassie Moyer Notes Date Note Type Note Provider Name a nd Address Organization Details Recorded Time 01/09/2025 text/html c/o fatigue, nec k pain the patient is having tenderness around her thyroid, SCM tendon tendernessthe patient reports she did have the flu a few months ago, still having night sweats, chills, fatigue the patient does have a LEAN MANAGER appt for breast tenderness left side, lateral side of the breastcould also be radiculopathy from the neck and shoulder swelling around the LN around her thyroid and under her jawswelling around the clavicle no significant swelling around the thyroid just tender throughout anterior neck the patient reports that she also sees the gastro doctor coming up the patient denies trauma or injury SHEN ALLEN [address] [place], [address], [facility] 01/09/2025 11:13:33 OBGyn Episode No OBEpisode recorded.
--- OUTSIDE RECORDS SUMMARY | 2025-01-09 13:54 | XMS_ITS | Referral Summary ---
Author Organization [facility] Address [address] [place] [address] Care Team Providers Care Medication Administration Professional Name Role Phone Donald Hill Primary Care Provider [phone] Allergies Active Allergy Reactions Criticality Noted Date Comments Azithromycin Hives,Unknown 06/16/2012 Cefaclor Itching,Unknown 06/16/2012 Clindamycin Dyspnea,Respiratory Distress,Unknown High 06/16/2012 Codeine Vomiting,Unknown,Itc hin g 06/16/2012 Hydrocodone Rash 10/28/2022 Hydromorphone Hives 05/16/2021 Levofloxacin Anaphylaxis,Dyspnea High 06/16/2012 Mineral Oil-Hydrophil Petrolat Photosensitivity rash 06/27/2022 Other reaction(s): third degree giron Reaction to adhesive remover Morphine Hives,Unknown 06/16/2012 Smnpkrq-Sxl-Kea Reductase Inhibitors Joint pain Medium 05/16/2021 Pt [...] - Right upper quad ultrasound - Start Tdjygmm65 mg daily - Advised to follow FODMAP [...] suggest sclerosing mesenteritis. CTAP was done at [facility] we will upload the images on [facility] and we will ask our radiologist to [...] - Obtain VCE videos from her outpatient senior program manager - Repeat CTAP in 2 to 3 [...] 10/28/2022 8:44 AM EST Plan of Treatment Not on file Insurance PPO/EPO Care Teams Medication Administration Professional Relationship Specialty Start Date End Date Donald Hill [address] [place] [phone] PCP - General Internal Medicine 07/30/22
--- OUTSIDE RECORDS SUMMARY | 2025-01-09 13:55 | XMS_ITS | Encounter Summary ---
Author Organization [facility] Address [address] [place] [address] Care Team Providers Care Content Development Specialist Name Role Phone Donald Hill Primary Care Provider [phone] Encounter Details Date Type Department Care Team (Late st Contact Info) Description 05/03/2023 Orders Only [facility] XRay [address] [place] [address] Oz Reynolds MD [address] [place] [address] Social History Tobacco Use Types Packs/Day Years Used Date Smoking Tobacco: Never Passive Smoke Exposure: Past Smokeless Tobacco: Never Comments Unknown Sex and Gender Information Value Date Recorded Sex Assigned at Female 03/30/2023 11:55 AM EDT Legal Sex Female 7:35 AM EDT Gender Identity Female 03/30/2023 11:55 AM EDT Sexual Orientation Choose not to disclose 2022 11:55 AM EDT documented as of this encounter Plan of Treatment Not on file documented as of this encounter Visit Diagnoses Not on filedocumented in this encounter Care Teams Content Development Specialist Relationship Specialty Start Date End Date Donald Hill [address] [place] [phone] PCP - General Internal Medicine 07/30/22 documented as of this encounter
--- OUTSIDE RECORDS SUMMARY | 2025-01-09 13:55 | XMS_ITS | Encounter Summary ---
Author Organization [facility] Address [address] [place] [address] Care Team Providers Care Surgical Coordinator Name Role Phone Donald Hill Primary Care Provider [phone] Encounter Details Date Type Department Care Team (Late st Contact Info) Description 10/29/2022 Orders Only [facility] XRay [address] [place] [address] Kane Sue MD [address] [place] [address] Social History Tobacco Use Types Packs/Day Years [...] on filedocumented in this encounter Care Teams Surgical Coordinator Relationship Specialty Start Date End Date Donald Hill [address] [place] [phone] PCP - General Internal Medicine 07/30/22 documented as of this encounter
--- OUTSIDE RECORDS SUMMARY | 2025-01-09 13:55 | XMS_ITS | Data Portability ---
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 MUST MEET 2 OUT OF 3 ELEMENTS: PROBLEMS, DATA OR RISK ELEMENT 1: PROBLEMS ADDRESSED 1 OR MORE CHRONIC ILLNESS WITH EXACERBATION OR 2 OR MORE STABLE CHRONIC ILLNESSES OR 1 UNDIAGNOSED NEW PROBLEM OR 1 ACUTE ILLNESS W/SYMPTOMS OR 1 ACUTE COMPLICATED INJURY ELEMENT 2: DATA MUST MEET 1 OF 3 CATEGORIES CATEGORY 1: REVIEW OF PRIOR EXTERNAL NOTES, REVIEW OF RESULTS, ORDERING OF EACH TEST, ASSESSMENT REQUIRING INDEPENDENT HISTORIAN OR CATEGORY 2: INDEPENDENT INTERPRETATION OF TESTS BY ANOTHER PHYSICIAN OR SPECIALIST OR CATEGORY 3: DISCUSSION OF MGT OR TEST INTERPRETATION W/EXTERNAL PHYSICIAN OR SPECIALIST ELEMENT 3: RISK RISK OF COMPLICATIONS AND/OR MORBIDITY OR MORTALITY OF PATIENT MANAGEMENT PROVIDER MUST THOROUGHLY DOCUMENT EACH ELEMENT THAT IS COVERED Not available 10/30/2024 16:34:40 Plan of Treatment Reminders Order Date Submit Date Provider Last Modified By Organization Details Last Modified Time Details Appointments FOLLOW UP 15 2024 10:45A SHEN PASCUAL Not available Not available Not available Lab TSH + free T4, serum 2024 025 [facility], [address] [place] [address], [place], [address], 01/09/2025 11:11:12 thyroid peroxidas e (tpo) Ab, serum 2024 025 [facility], [address] [place] [address], [place], [address], 01/09/2025 11:11:12 tsi (thyroid- stimulati ng immunoglo bulin), serum 2024 [facility], [address] [place] [address], [address], 01/09/2025 11:11:12 ESR (erythroc yte sedimenta tion rate), blood 2024 025 [facility], [address] [place] [address], [address], 01/09/2025 11:11:13 C reactive protein, QN, serum or plasma 2024 [facility], [address] [place] [address], [place], [address], 01/09/2025 11:11:12 CBC w/ auto diff 2024 [facility], [address] [place] [address], [address], 01/09/2025 11:11:12 Referral None recorded. Procedures None recorded. Surgeries None recorded. Imaging XR, thoracic spine, 3 view 2024 025 [facility] Central Scheduling (Not Breast), [address] [place], [address], 11/13/2024 07:06:18 barium swallow study - allergic to contrast dye!!! 2023 024 CRANDON Not available 07/10/2024 17:06:27 Medication Orders amoxicill in 875 mg-potass ium clavulana te 125 mg tablet 2023 025 [facility][id number], [address] [place], [address], 11/10/2024 11:31:49 fluconazo le 150 mg tablet 2023 024 [id number], [address] [place], [address], 11/10/2024 11:32:03 Patient TargetsNo targets recorded. Patient Instructions Encounter Date Encounter Id Patient Instructions Last Modified By Organization Details Last Modified Time 10/30/2024 [id number] learning about asthma Not available 10/30/2024 16:35:27 high cholesterol : care instructions Not available 10/30/2024 16:34:10 Reason for Referral None Reported. Results Created Date Observation Date Name Description Value Unit Range Abnormal Flag Note LastModifiedBy Organization Detail LastModifiedTime 07/10/2007/10/2024 adali castellon study No observ ation record ed. [email or web address] [address], [address], 07/14/2024 09:19:42 07/19/20 24 06/09/2024 fine needl e aspir ation , thyro id (PROC ) No observ ation record ed. BARCODE Not Available 2023 14:36:44 11/12/19 25 11/10/2024 XR, thora cic spine , 3 view No observ ation record ed. [email or web address] [facility] - [facility] Imaging Central Scheduling (Not Breast) [address] [place] [address], [address], 11/22/2024 10:11:12 Result Notes None recorded. Problems Name Problem SNOMED Code Status Onset Date Resolution Date Notes Provider Name and Address Organization Details Recorded Time COVID-19 140061371 Active 2021 Not Available [facility] 3 06:46:24 Hordeolum externum of lower eyelid of right eye 385977303420 104 Active 2021 Not Available [facility] 3 06:46:24 Diarrhea 40372289 Active 2021 Not Available [facility] 3 06:46:24 Abdominal pain 24539976 Active 2021 Not Available [facility] 3 06:46:24 Nausea and vomiting 43172270 Active 2021 Not Available [facility] 3 06:46:24 Sclerosin g mesenteri tis 269956227050 9100 Active 2021 Not Available [facility] 3 06:46:24 Exacerbat ion of intermitt ent asthma 177314939 Active 2021 Not Available [facility] 3 06:46:24 Migraine 28691732 Active 2021 Not Available [facility] 3 06:46:24 Type 2 diabetes mellitus 76503641 Active 2017 Not Available [facility] 3 06:46:24 Low back pain 145988603 Active 2017 LS Not Available [facility] 3 06:46:24 Asthma 388776155 Active 2017 Not Available [facility] 3 06:46:24 Hyperlipi demia 40280873 Active 2017 Not Available [facility] 3 06:46:24 Fibromyal shane 217336335 Active 2017 Not Available [facility] 3 06:46:24 Cervical lymphaden opathy 337773652 Active 2021 Not Available [facility] 3 06:46:24 Essential hypertens ion 23808046 Active 2017 Not Available [facility] 3 06:46:24 Iliotibia l band friction syndrome of left knee 908334431756 102 Active 2021 Not Available [facility] 3 06:46:24 Lateral epicondyl itis of left humerus 534490335335 100 Active 2021 Not Available [facility] 3 06:46:24 Seborrhei c keratosis 730293298 Active 2021 Not Available [facility] 3 06:46:24 Pain in throat 726850706 Active 2021 Not Available [facility] 3 06:46:24 Pain of left hip joint 710414585637 100 Active 2022 Not Available [facility] 3 06:46:24 Mass of mcclure 033924794 Active 2022 Not Available [facility] 3 06:46:24 Kidney lesion 540898500519 00 Active 2022 Not Available [facility] 3 06:46:24 Pain of nose 216903035 Active 2022 Not Available [facility] 3 06:46:24 Menopausa l flushing 942402227 Active 2022 Not Available [facility] 3 06:46:24 Subclinic al hypothyro idism 55465184 Active 2022 Not Available [facility] 3 06:46:24 Streptoco ccal sore throat 97283673 Active 2022 Not Available [facility] 3 06:46:24 Lateral epicondyl itis of right humerus 223413231535 107 Active 2022 SHEN ALLEN [address] [place], [address], [facility] 3 16:29:54 Pain of right elbow joint 378326401720 65020 Active 2023 SHEN ALLEN [address] [place] [address], [address], [facility] 4 16:39:39 Herpes zoster 8491566 Active 2023 SHEN ALLEN [address] [place], [address], [facility] 4 13:56:07 Thoracic back pain 933188688 Active 2023 SHEN ALLEN [address] [place], [address], [facility] 4 13:57:51 Dysuria 84522978 Active 2023 SHEN ALLEN [address] [place] [address], [address], [facility] 4 14:21:23 Thyroid nodule 762852254 Active 2023 SHEN ALLEN [address] [place], [address], [facility] 4 14:31:51 Sclerosin g peritonit is 42923377 Active 2023 SHEN ALLEN [address] [place] [address], [address], [facility] 4 10:06:09 Neck pain 86749795 Active 2023 SHEN ALLEN [address] [place] [address], [address], [facility] 4 10:13:00 Degenerat ion of lumbar intervert ebral disc 47601302 Active 2023 SHEN ALLEN [address] [place] [address], [address], [facility] 4 15:10:43 Esophagea l dysphagia 76460938 Active 2023 SHEN ALLEN [address] [place] [address], [address], [facility] 4 16:31:41 Candidias is of vagina 70937767 Active 2023 SHEN ALLEN [address] [place] [address], [address], [facility] 4 11:50:25 Acute otitis media 1342892 Active 2023 SHEN ALLEN [address] [place] [address], [address], [facility] 4 11:54:58 Pain of left shoulder joint 890233272208 12407 Active 2024 SHEN ALLEN [address] [place] [address], [address], [facility] 5 08:48:01 Muscle pain 42282815 Active 2024 SHEN ALLEN [address] [place] [address], [address], [facility] 5 11:53:00 Spasm of back muscles 515875907 Active 2024 SHEN ALLEN [address] [place], [address], [facility] 5 11:53:12 Degenerat ion of thoracic intervert ebral disc 72872996 Active 2024 SHEN ALLEN [address] [place], [address], [facility] 5 10:13:29 Fatigue 57528676 Active 2024 SHEN ALLEN [address] [place], [address], [facility] 5 11:03:22 Clavicle pain 642931286 Active 2024 SHEN ALLEN [address] [place], [address], [facility] 5 11:08:06 Clavicle pain 422312696 Active 2024 SHEN ALLEN [address] [place], [address], [facility] 5 11:11:11 Vitamin D deficienc y 97610301 Active 2017 Not Available [facility] 3 06:46:24 Problem Notes None recorded. Procedures Surgical History Date Name Laterality Status Provider Name and Address Organization Details Recorded Time 10/04/19 19 Partial Hysterectomy completed January JULIA Manjarrez [address] [place], [address], [facility] 03/15/2019 09:47:37 Imaging Results Imaging Date Name Status LastModified by Organiz ation Details LastModified Time 07/10/2024 barium swallow study completed [email or web address] [address], [address], 07/14/2024 09:19:42 06/09/2024 fine needle aspiration, thyroid (PROC) completed BARCODE Information not available 07/19/2024 14:36:44 11/10/2024 XR, thoracic spine, 3 view completed [email or web address] Imaging Central Scheduling (Not Breast) [address] [facility], [place], [address], 11/22/2024 10:11:12 Procedure Notes None recorded. Medical Equipment None Reported. Allergies Allergen ID Allergen Name Allergen Category Reaction Reaction Severity Criticality Documentation Date Start Date Code Code System Note Provider Name and Address Organization Details Recorded Time 569 Ceclor medicatio n Not available Not available Not available 12/22/201788723 5 RxNorm Carolina fischer [facility] 8 09:31:34 570 clindamyc in Not available Not available Not available Not available 12/22/2017 2582 RxNorm Carolina fischer [facility] 8 09:31:51 571 codeine medicatio n Not available Not available Not available 12/22/2017 2670 [facility] 09:33[facility]50 572 Dilaudid medicatio n Not available Not available Not available 12/22/2017 75933 3 [facility] 09:34[facility]08 573 hydrocodo ne Not available Not available Not available Not available 12/22/2017 5489 RxNorm Carolina fischer [facility] 8 09:34:26 574 morphine medicatio n Not available Not available Not available 12/22/2017 7052 [facility] 09:35[facility]00 575 Product containin g 3-hydroxy -3-methyl glutaryl- coenzyme A reductase inhibitor (product) medicatio n Not available Not available Not available 12/22/2017 19124 009 SNOMED bruis ing, itchi ng [facility] 09:41:08 576 Tylox medicatio n Not available Not available Not available 12/22/2017 17779 5 RxNorm Carolina fischer [facility] 8 09:35:21 577 azithromy marcella medicatio n Not available Not available Not available 12/22/2017 75919 RxNorm itchi ng Carolina fischer [facility] 8 09:41:52 578 Levaquin medicatio n anaphylax is Not available Not available 12/22/2017 72479 2 RxNorm Carolina fischer [facility] 8 09:37:18 8261 Iodinated contrast media (substanc e) medicatio n hives moderate Not available 05/17/20242023 46977 2003 SNOMED Sade fischer [facility] 4 15:25:09 8375 shellfish derived food,medi cation dyspnea moderate Not available 07/03/2024 [id number] SHEN PETERS [address] [place], [address], [facility] 4 16:14:32 Medications Name Sig Start Date [...] and Address Organization Details Last Updated DateTime 4 163.83 cm 24.4 kg/m2 23606.0 2 g 68 /min 98 % 98 % 138 mm[Hg] 88 mm[Hg] Sade Gannon [facility] 4 16:06:49 Date Recorded Body height Heart rate Oxygen saturation Oxygen saturation in Arterial blood by Pulse oximetry Systolic blood pressure Diastolic blood pressure Provider Name and Address Organization Details Last Updated DateTime 4 163.83 cm 67 /min 97 % 97 % 132 mm[Hg] 86 mm[Hg] Sade Gannon [facility] 4 11:39:09 Date Recorded Body height Body mass index (BMI) Body weight Heart rate Oxygen saturation Oxygen saturation in Arterial blood by Pulse oximetry Systolic blood pressure Diastolic blood pressure Provider Name and Address Organization Details Last Updated DateTime 5 163.83 cm 24.5 kg/m2 38649.8 9 g 80 /min 98 % 98 % 140 mm[Hg] 84 mm[Hg] Mark Martell [facility] 5 11:36:42 Date Recorded Body height Body mass index (BMI) Body weight Heart rate Oxygen saturation Oxygen saturation in Arterial blood by Pulse oximetry Systolic blood pressure Diastolic blood pressure Provider Name and Address Organization Details Last Updated DateTime 5 163.83 cm 24.8 kg/m2 48508.0 8 g 74 /min 95 % 95 % 148 mm[Hg] 94 mm[Hg] Sade Jagdeep [facility] 5 10:54:55 Social History Question Answer Notes LastModified by [email or web address] ion Details LastModified Time Tobacco Smoking Status Never Smoker Not Available [facility] 08/06/2020 03:36:23 What Was The Date Of [...] 50 mcg/0.25mL dose 1 completed Not Available [facility] 08/18/2023 06:46:25 COVID-19, mRNA, LNP-S, PF, 100 mcg/0.5mL dose or 50 mcg/0.25mL dose 1 completed Not Available [facility] 08/18/2023 06:46:25 COVID-19, mRNA, LNP-S, PF, 100 mcg/0.5mL dose or 50 mcg/0.25mL dose 1 completed Not Available [facility] 08/18/2023 06:46:25 Influenza, split virus, quadrivalent, preservative 1 completed Not Available [facility] 08/18/2023 06:46:25 Influenza, split virus, quadrivalent, preservative 2 completed Not Available [facility] 08/18/2023 06:46:25 COVID-19, mRNA, LNP-S, PF, 30 mcg/0.3 mL dose 2 completed Not Available [facility] 08/18/2023 06:46:25 Influenza, split virus, quadrivalent, preservative 8 completed Not Available [facility] 08/18/2023 06:46:25 influenza, unspecified formulation 4 completed Sade fischer [facility] 07/12/2024 12:12:30 SARS-COV-2 (COVID-19) vaccine, UNSPECIFIED 4 completed Sade fischer [facility] 07/12/2024 12:12:37 Influenza, split virus, quadrivalent, preservative 9 completed Not Available [facility] 08/18/2023 06:46:25 Influenza, split virus, quadrivalent, preservative 0 completed Not Available [facility] 08/18/2023 06:46:25 Past Encounters Encounter ID Performer Location Encounter Start Date Encounter Closed Date Diagnosis/Indication Diagnosis SNOMED-CT Code Diagnosis ICD10 Code Diagnosis Note [id number] January [facility] [address] [facility], [place] [address] 02/02/2018 16:18:27 02/02/2018 17:02:10 Asthma 161860901 J45.909 finally improving, continue to monitor Vitamin D deficiency 347 38541 E55.9 some symptomati c improvemen t will recheck labs in 6 months Type 2 sandy betes mellitus 39967420 E11.65 working on diet, will work on exercise now that she is feeling better continue current regimen may need to consider statin, will recheck her labs in a few months diet ananth khalil 15 minutes [id number] January [facility] ([facility] [address] [facility],[place] [address] 06/03/2018 11:15:10 06/03/2018 12:17:05 Essential hypertension 28435619 I10 stable Asthma 998268683 J45.90 9 finally improving, continue to monitor Epicondylitis 58111478 M 77.8 lateral epicondyle also ice, rest, brace [id number] [facility] [address] [facility], [place] [facility] [place] [address] 06/14/2018 15:49:02 06/14/2018 16:30:59 Asthma 584808183 J45.909 finally improving, continue to monitor Pneumonia 989237951 J18. 9 use pro air use symbicort use mucinex [id number] [facility] [address] [facility], [place] [address] 06/21/2018 15:54:49 06/22/2018 09:28:54 Asthma 636662356 J45.909 finally improving, continue to monitor Pneumonia 278206946 J18. 9 use pro air use symbicort use mucinex Type 2 sandy betes mellitus 08393086 E11.65 working on diet, will work on exercise now that she is feeling better continue current regimen may need to consider statin, will recheck her labs in a few months diet counsellin g 15 minutes Essential hypertension 85999380 I10 stable Mixed hyperlipidemia 267 664299 E78.2 not well controlled fish oil/red yeast rice supplement with close diet and exercise fiber supplement recheck 6 months [id number] [facility] [address] [facility],[place] [address] 08/19/2018 15:31:40 08/19/2018 16:06:50 Pneumonia 309740440 J18.9 increased risk for bacterial infection due to dm need to cover as she has upcoming surgery use pro air use symbicort use mucinex Asthma 015760356 J45.90 9 finally improving, continue to monitor Type 2 sandy betes mellitus 34382758 E11.65 working on diet, will work on exercise now that she is feeling better continue current regimen may need to consider statin, will recheck her labs in a few months diet counsellin g 15 minutes [id number] [facility] [address] [facility],[place] [address] 03/15/2019 09:27:42 03/15/2019 10:11:53 Asthma 488769493 J45.909 stable Vitamin D deficiency 347 48241 E55.9 some symptomati c improvemen t will recheck labs in 6 months Type 2 sandy betes mellitus 33419728 E11.65 just starting to recover from surgery will be working on diet will give another 3 months, then add new meds if no improvemen t Hyperlipidemia 14184611 E78.5 again work on diet add red yeast rice continue fenofibrat e reconsider statins pending feeling Essential hypertension 69789546 I10 elevated would like to work on exercise first Body mass index 30+ - obesity 108898044 Z68.32 wants to work on weight loss [id number] [facility] [address] [facility],[place] [address] 05/02/2019 14:38:37 05/02/2019 15:26:11 Bacterial conjunctivitis 393541757 H10.9 Asthma 989207056 J45.90 9 stable Type 2 sandy betes mellitus 26397490 E11.65 just starting to recover from surgery will be working on diet will give another 3 months, then add new meds if no improvemen t Essential hypertension 79741251 I10 elevated would like to work on exercise first [id number] [facility] [address] [place] [address],[place] [address] 07/12/2019 13:31:56 07/12/2019 14:17:30 Asthma 108072603 J45.909 stable Type 2 sandy betes mellitus 91359746 E11.65 has been working on diet has made some improvemen t with a1c from 9.6 to 8.6 eating more fish continue healthy diet and exercise Essential hypertension 96093177 I10 elevated initially, returned to normal after rechecking Fatigue 44582346 R53.83 Vitamin D deficiency 347 61876 E55.9 some symptomati c improvemen t will recheck labs in 6 months [id number] [facility] [address] [facility], [place] [address] 08/29/2019 10:13:18 08/29/2019 10:56:40 Acute otitis media 6555841 H66.92 Acute blepharitis 882291 04 H01.009 Asthma 769755452 J45.90 9 stable Essential hypertension 82767347 I10 MILDLY ELEVATED Candidiasis of vagina 72 843839 B37.3 [id number] Kaitlin JosselineBERNARDINOJAGDISH [facility] [address] [facility] [place], [place] [address] 09/12/2019 16:10:44 09/12/2019 16:49:02 Parotid swelling 348828578 K11.9 took amox recently take probiotic take with food Sialoadenitis 96631549 K 11.20 Candidiasis of vagina 72 078854 B37.3 Essential hypertension 23483370 I10 MILDLY ELEVATED ONCE AGAIN [id number] SHEN ALLEN [facility] [address] [facility] [place], [place] [address] 05/31/2020 10:56:05 05/31/2020 11:58:08 Asthma 471578529 J45.909 stable Essential hypertension 70044915 I10 BP elevated but actually better than last check will monitor Type 2 sandy betes mellitus 46524360 E11.9 will check A1c as she is due Contact dermatitis 21354 004 L25.9 will try stronger steriod topically as she doesn't do well on pred due to diabetes will also given epipen in case allergic reaction worsens Vitamin D deficiency 347 38641 E55.9 needs to have vitamin d checked [id number] SHEN ALLEN [facility] [address] [facility] [place], [place] [address] 09/04/2020 08:14:20 09/04/2020 16:10:44 Essential hypertension 11891082 I10 BP monitor will daughter Type 2 sandy betes mellitus 06080001 E11.9 will try diet again, very strict rules if no improvemen t will add on glipizide or endo appt Hyperlipidemia 75471918 E78.5 will add on fish oil supplement and take red yeast rice supplement more regularly Vitamin D deficiency 347 05800 E55.9 needs to have vitamin d checked [id number] SHEN ALLEN [facility] [address] [facility] [address] [place] [address] 11/25/2021 09:49:05 11/25/2021 14:15:14 Asthma 521527071 J45.30 stable Essential hypertension 85183017 I10 BP monitor will daughter Type 2 sandy betes mellitus 59790803 E11.65 patient is currently trulicity Vitamin D deficiency 347 26905 E55.9 needs to have vitamin d checked Hyperlipidemia 06524480 E78.01 following up with endo for monitoring Pain of breast 47568375 N64.4 left breast [id number] SHEN ALLEN [facility] [address] [facility] [address],[place] [address] 03/03/2022 10:58:40 03/03/2022 16:28:15 Acute blepharitis 97831280 H01.021 will start on ointment Hordeolum externum of lower eyelid of right eye 5376817902 22841 H00.012 will fu with pt if no improvemen t [id number] SHEN ALLEN [facility] [address] [facility] [place] [address] 03/25/2022 10:59:12 03/25/2022 11:43:49 Diarrhea 33718244 R19.7 will fu with lab work up first before imaging to assess what is causing the issue possible previous infection due to spleen tenderness but will fu that up with lab work Abdominal pain 19662662 R10.0 will fu with full workholdin g on CT until labs come in Nausea and vomiting 1693 2000 R11.2 [place] [id number] Charissa Gencarelle [facility] [address] [facility] [place] [address] 05/26/2022 13:38:10 05/26/2022 14:42:20 Sclerosing mesenteritis 8627883840 903179 K65.4 will fu with STAT GI referral to [facility] since [facility] is booked to far out [id number] SHEN ALLEN [facility] [address] [facility] [address] [place] [address] 07/17/2022 08:14:04 07/17/2022 16:49:48 Type 2 diabetes mellitus 33984452 E11.65 will f/u Sclerosing mesenteritis 5226263154 806398 K65.4 will f/u with lab work Cervical lymphadenopathy 614691406 R59.0 will check US neck soft tissue Hyperlipidemia [id number] E78.01 following up with endo for monitoring [id number] SHEN ALLEN [facility] [address] [facility] [address],[place] [address] 08/03/2022 16:13:46 08/04/2022 09:01:43 Hyperlipidemia 20711668 E78.01 will f/u with lipid panels here since her endo left Abdominal pain 27862696 R10.0 will need to call Monika for the dose of prednisone (10 mg)did consult surgeon for the LN biospy; they didn't think it was big enough ?lymphoma without tumorCRP was elevated which was a concern Essential hypertension 53004699 I10 BP monitor will daughter Iliotibial band friction syndrome of left knee 1465208135 73756 M76.32 will trial PT first Lateral ep icondylitis of left humerus [id number] 36347 M77.12 will set up with PT Seborrheic keratosis 394 480636 L82.1 will set up with derm [id number] SHEN ALLEN [facility] [address] [facility] [address] [address] 02/10/2023 10:56:45 02/10/2023 16:34:11 Mass of mcclure 547192974 R22.42 agreed to US left LE Type 2 sandy betes mellitus 11580364 E11.65 needs to monitor her onqostB2p 10.4% Sclerosing mesenteritis [id number] 720523 K65.4 seeing GI on (h as been on prednisone which is most likely what is causing more of the spike in her sugar)the patient may be having a LN biospy? feel that would be the most appropriat e optionwill have this discussion againher LN was bigger with recent CT Kidney lesion [id number] 9100 N28.9 left kidneytoo small; will recheck in 6 mos > US in 6 mos Pain of le ft hip joint 4226678451 75114 M25.552 [id number] SHEN ALLEN [facility] [address] [facility] [address],[place] [address] 07/21/2023 11:06:40 07/21/2023 13:23:56 Menopausal flushing 954435956 N95.1 will set up with lab work for possible menopause Subclinica l hypothyroidism 55117361 E02 ? anne-marie' s still working with endo for a full answer [id number] SHEN ALLEN [facility] [address] [facility] [address] [address] 12/14/2023 13:39:26 12/14/2023 15:37:53 Herpes zoster 6134368 B02.9 ? unlikely given no rash, just the odd discomfort Thoracic back pain 07538 8004 M54.6 will run an autoimmune panel again as wellagreed to XR specific for the thoracic back Contact dermatitis 90812 004 L25.9 will try stronger steriod topically as she doesn't do well on pred due to diabetes will also given epipen in case allergic reaction worsens [id number] SHEN ALLEN [facility] [address] [facility] [address] [address] 03/27/2024 09:36:34 03/27/2024 14:13:40 Depression screening 178078221 Z13.31 0 negative Type 2 sandy betes mellitus 55432967 E11.65 her numbers have been much improved since she started her diet and lifestyle changessta ys within the green, had a very low readingwil l set up with change in medication , drop to 500 mg Asthma 928797884 J45.30 stable Sclerosing peritonitis 84013947 K65.4 stable 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 agreed to check if it is shrimp Pain of le ft hip joint 7326308874 57159 M25.552 will set up with full screen for XRs Thoracic back pain 45995 8004 M54.6 will run an autoimmune panel again as wellagreed to XR specific for the thoracic back Neck pain 30328640 M54.2 will set up with XRs [id number] SHEN ALLEN [facility] [address] [facility] [address] [address] 07/03/2024 15:56:46 07/03/2024 16:42:16 Renewal of prescription 235033402 Z76.0 stable Esophageal dysphagia 408 08110 R13.19 agreed to barium swallow study Thyroid nodule 672849665 E04.1 needs US in one year Type 2 sandy betes mellitus 65272908 E11.65 doing really well Subclinica l hypothyroidism 30335225 E02 endo will not see her unless the US shows need for biopsy again Pain of le ft hip joint 9294579884 99145 M25.552 printed referral [id number] SHEN ALLEN [facility] [address] [facility] [address] [address] 07/19/2024 11:27:39 07/19/2024 13:29:24 Acute otitis media 6930090 H65.01 start on augmentin Candidiasis of vagina 72 496163 B37.31 issues with abx provoked yeast infectiona lways gets fluconazol e [id number] Donald Hill, [facility] [address] [facility] [address] [address] 10/30/2024 13:31:24 10/30/2024 16:38:59 Esophageal dysphagia 13780692 R13.19 here for rechk noted she is still having an issue relates had nl egd wonder if she is having a prob with laryngeal reflux\als o is seeing [facility] which has been giving her supp Essential hypertension 02521715 I10 bp is better since she has lost 50 lbs overallshe is off propranolo l Type 2 sandy betes mellitus 34842971 E11.65 is taking supp along metform which is glucobeti c along with a lot of supp Hyperlipidemia 18162392 E78.01 back on red yeast rice but is off rosuvastat in Asthma 407613325 J45.30 using albut during cold [id number] SHEN ALLEN [facility] [address] [facility] [address] [address] 11/10/2024 11:26:11 11/10/2024 11:59:56 Thoracic back pain 995692484 M54.6 will set up with XR thoracicwi ll cont with OTC meds, will call wednesday with update otherwise if she needs additional medication s Muscle pain 08249966 M79 .18 cont OTC meds Spasm of back muscles 20 1847696 M62.830 cont OTC meds [id number] SHEN ALLEN [facility] [address] [facility] [address],[place] [address] 01/09/2025 10:47:15 01/09/2025 11:13:33 Thyroid nodule 476506082 E04.1 needs US in one year Fatigue 16107348 R53.83 set up with f/u lab work Clavicle pain 519658379 M25.511 swelling oh, R>L Health Concerns Section Related Observation LastModified by Organization Detai ls LastModified Time None Recorded Concern Status LastModified by Organization Details LastModified Time None Recorded Advance Directives Directive None Recorded Payers Encounter Date Sequence Insurance Name Policy Number Policy Gonzalez Covered Member ID Gonzalez Member ID Guarantor Name 07/03/2024 1 [place] [id number] Zaheer Fitch Skrocki [id number] Cassie Skrocki 07/19/2024 1 [place] [id number] Zaheer Fitch Skrocki [id number] Cassie Skrocki 10/30/2024 1 [place] [id number] Zaheer Fitch Skrocki [id number] Cassie Skrocki 11/10/2024 1 [place] [id number] Zaheer Fitch Skrocki [id number] Cassie Skrocki 01/09/2025 1 [place] [id number] Zaheer Fitch Skrocki [id number] Cassie Skrocki Notes Date Note Type Note Provider Name a nd Address Organization Details Recorded Time 4 text/html Patient presents today for follow-up for Type 2 Diabetes Recent lab showed an A1c of 6.8%, which is down from 8% previouslyher sugar was low last time she was in office, getting a lot of low readings, so we dropped her to only 500 mg of metformin The patient has been compliant with medications as discussed with the adjustmentThe complications patient is experiencing are N/AThe patient has current concerns about related to their diabetes diagnosis is monitoring her for the low readings to keep adjusting her medications as we go, standing orders placedstill using the Freestyle Brent 2The patient has been compliant with lifestyle changes including dietary changes, exercise and healthy habitsdown from 151 lbs to 144 lbs today, overall currently a 50 lb weight loss Discussion about feet reveals normal examDiscussion about eyes reveal normal exam Treatment plan going forward is continue to monitor her BS, continue with weight loss and medication compliance the patient is still seeing GI to monitor her mesenteritis endo recommended fu with us to another US in a yearstill having throat fullness sensation, clearing her throat, hoarseness, do not think it is related recommended GI consult for endoscopehas had ENT consult, scope was negative has to f/u with ortho for her elbow for weakness after cortisone injectionprinted referral info for PT/ortho for hip and back needs path report from endo will monitor her symptomsfor now will proceed with barium swallow per endocrine since they do not believe it there specialties option SHEN ALLEN [address] [place], [address], [facility] 07/03/2024 16:41:33 4 text/html c/o acute otitis media the patient reports that she is having right ear painsister removed some wax and noted bleeding in the ear and inflammation needs something for yeast infection after abx use seeing ENT and GI for f/u discuss LARP for the chocking and breathing issueswill run by ENT and GI SHEN ALLEN [address] [place], [address], [facility] 07/19/2024 12:03:05 5 text/html patient is evaluated via tele/video assessment per patient consentduring current pandemic relates that she underwent testing and had a egd done with some dilationalso is still having pain to her right ear Donald Hill DO [address] [place], [address], [facility] 10/30/2024 16:35:41 5 text/html c/o back pain the patient is having thoracic-lumbar spine pain for about a weekdenies any mechanism of trauma or injurythe patient reports the pain is about low thoracic upper lumbar, under her bra line around T12 to L1-L2the patient reports that the pain is persistent, worse with laying flat on her backthe pt doesn't have any restrictions with activity throughout the day, able to bend and twist without loss of ROM or sig change in her discomfort the patient reports that it is just localizeddenies radiationdenies numbness or tinglingpain feels persistent/constant gnawing ache in the area of concern she has been using ice, heat, NSAID's, APAP definitely on exam around T10 with noticeable swelling of the muscle and notable bulge when compared to upper and lumbar recommended thoracic XR for patient SHEN ALLEN [address] [place], [address], [facility] 11/10/2024 11:54:08 5 text/html c/o fatigue, neck pain the patient is having tenderness around her thyroid, SCM tendon tendernessthe patient reports she did have the flu a few months ago, still having night sweats, chills, fatigue the patient does have a INTERVENTIONAL NEURORADIOLOGIST appt for breast tenderness left side, lateral [...] denies trauma or injury SHEN ALLEN [address] [place], [address], [facility] 01/09/2025 11:13:33 OBGyn Episode No OBEpisode recorded.
[2025-01-09 14:01] LABS: C Reactive Protein < 0.10 mg/dL (< or = 0.50)
[2025-01-09 14:06] LABS: Erythrocyte Sedimentation Rate 6 MM/HR (0-20)
[2025-01-09 14:19] LABS: T4 Thyroxine 7.9 ug/dL (4.5-12.0); Thyroid Stimulating Hormone 1.98 uIU/mL (0.32-4.0)
[2025-01-11 23:24] LABS: Thyroid Peroxidase Antibodies <1 IU/mL (<9)
[2025-01-12 15:08] LABS: Thyroid Stimulating Immunoglob <89 % baseline (<140)
== END 2025-01-09 11:20 | disposition home or self-care (01) ==
LOC: HO.MANLDS 11:19
PROVIDERS: Visit Provider Physician Assistant
DX: Z13.89 Encounter for screening for other disorder (principal)
CPT/HCPCS: 36415; 84436; 84443; 84445; 85025; 85652; 86140; 86376

== ENCOUNTER 2025-03-08 15:29 | Outpatient (REF) | payer BC, SELFPAY ==
--- NOTE | ~2025-03-08 | US_ITS ---
EXAMINATION: US ABDOMEN LIMITED HISTORY: GENERALIZED SWELLING MASS AND LUMP TECHNIQUE: Real-time grayscale ultrasound imaging of the anterior abdominal wall in the epigastric region was performed and images were reviewed. COMPARISON: There are no prior studies available for comparison. FINDINGS: There is a 3 mm cystic structure just beneath the skin corresponding to the palpable findings. No additional sonographic abnormality is seen. US/US abdomen limited IMPRESSION: 3 mm cystic structure just beneath the skin of the anterior abdominal wall in the epigastric region corresponding to the palpable findings. This could represent a small focus of fat necrosis. Clinical correlation is recommended. Electronically signed by: Yobani Arroyo MD 03/09/2025 07:21 AM EDT
--- NOTE | ~2025-03-08 | US_ITS ---
EXAMINATION: US THYROID HISTORY: THYROIDITIS, CERVICAL LYMPHADENOPATHY TECHNIQUE: Real-time grayscale ultrasound imaging was performed and images were reviewed. COMPARISON: Comparison is made with the prior examination dated 03/30/2024. FINDINGS: SIZE: The right thyroid lobe measures 3.9 x 1.3 x 1.4 cm. The left thyroid lobe measures 4.0 x 1.3 x 1.3 cm. The isthmus measures 5 mm. FLOW: Flow to the gland is increased. ECHOGENICITY: The echotexture of the gland is homogeneous. NODULES: Again seen are multiple bilateral thyroid nodules as described below: Nodule #: 1 Location: Lower pole of the right thyroid lobe measuring 4 x 4 by 4 mm (not seen previously). Shape: Round (0 points) Margins: Smooth (0 points) Echotexture: Isoechoic (1 point) Composition: Solid (2 points) Calcifications: None (0 points) Total points: 3 TIRADS: TR3: Mildly suspicious. Nodule #: 2 Location: Left lower isthmus measuring 1.6 x 0.6 x 1.0 cm (not seen previously). Shape: Wider than tall (0 points) Margins: Ill-defined (0 points) Echotexture: Hypoechoic (2 points) Composition: Solid (2 points) Calcifications: None (0 points) Total points: 4 TIRADS: TR4: Moderately suspicious. Nodule #: 3 Location: Left lower pole measuring 1.7 x 1.1 x 1.1 cm (previously 1.7 x 1.6 x 0.9 cm). Shape: Wider than tall (0 points) Margins: Ill-defined (0 points) Echotexture: Indeterminate (1 point) Composition: Solid (2 points) Calcifications: None (0 points) Total points: 3 TIRADS: TR3: Mildly suspicious. Nodule #: 4 Location: Right lower isthmus measuring 5 x 4 x 6 mm (previously 7 x 4 x 6 mm). Shape: Wider than tall (0 points) Margins: Smooth (0 points) Echotexture: Isoechoic (1 point) Composition: Solid (2 points) Calcifications: None (0 points) Total points: 3 TIRADS: TR3: Mildly suspicious. US/US thyroid IMPRESSION: New nodule of the left lower isthmus (#2 above) which is moderately suspicious. According to ACR TI-RADS guidelines below, ultrasound-guided fine-needle aspiration is recommended. ACR TI-RADS Guidelines TR1 (0 points): Benign, No follow-up or biopsy required TR2 (2 points): Not Suspicious, No biopsy or follow up indicated TR3 (3 points): Mildly Suspicious, FNA if >= 2.5 cm, Follow if >= 1.5 cm TR4 (4-6 points): Moderately Suspicious, FNA if >= 1.5 cm, Follow if >= 1.0 cm TR5 (>=7 points): Highly Suspicious, FNA if >= 1.0 cm, Follow if >= 0.5 cm Electronically signed by: Yobani Arroyo MD 03/09/2025 07:16 AM EDT
--- OUTSIDE RECORDS SUMMARY | 2025-03-08 17:58 | XMS_ITS | Clinical Summary ---
Author Organization [facility] Address [address] [place] [address] Care Team Providers Care Education General Manager Name Role Phone Donald Hill Primary Care Provider [phone] Allergies Active Allergy Reactions Criticality Noted Date Comments Azithromycin Hives,Unknown 06/16/2012 Cefaclor Itching,Unknown 06/16/2012 Clindamycin Dyspnea,Respiratory Distress,Unknown High 06/16/2012 Codeine Vomiting,Unknown,Itc hin g 06/16/2012 Hydrocodone Rash 10/28/2022 Hydromorphone Hives 05/16/2021 Levofloxacin Anaphylaxis,Dyspnea High 06/16/2012 Mineral Oil-Hydrophil Petrolat Photosensitivity rash 06/27/2022 Other reaction(s): third degree giron Reaction to adhesive remover Morphine Hives,Unknown 06/16/2012 Epasgmg-Tlw-Jjp Reductase Inhibitors Joint pain Medium 05/16/2021 Pt [...] - Right upper quad ultrasound - Start Azakfax42 mg daily - Advised to follow FODMAP [...] suggest sclerosing mesenteritis. 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
== END 2025-03-08 15:30 | disposition home or self-care (01) ==
LOC: HO.HMGCX 15:29
PROVIDERS: PCP Physician Assistant; Visit Provider Physician Assistant
DX: E06.9 Thyroiditis, unspecified (principal)
CPT/HCPCS: 76536; 76705

== ENCOUNTER → 2025-03-08 15:33 | Outpatient (BNV) | payer BC, SELFPAY | PROVIDERS: PCP Physician Assistant; Visit Provider Radiology Diagnostic Radiology | DX: L72.9 Follicular cyst of the skin and subcutaneous tissue, unspecified (principal); E06.9 Thyroiditis, unspecified; R59.0 Localized enlarged lymph nodes | CPT/HCPCS: 76536; 76705 ==

== ENCOUNTER 2025-04-13 12:19 | Outpatient (REF) | payer BC, SELFPAY ==
--- OUTSIDE RECORDS SUMMARY | 2025-04-13 12:30 | XMS_ITS | Clinical Summary ---
Author Organization [facility] Address [address] [place] [address] Care Team Providers Care Artificial Cherry Maker Name Role Phone Donald Hill Primary Care Provider [phone] Allergies Active Allergy Reactions Criticality Noted Date Comments Azithromycin Hives,Unknown 06/16/2012 Cefaclor Itching,Unknown 06/16/2012 Clindamycin Dyspnea,Respiratory Distress,Unknown High 06/16/2012 Codeine Vomiting,Unknown,Itc hin g 06/16/2012 Hydrocodone Rash 10/28/2022 Hydromorphone Hives 05/16/2021 Levofloxacin Anaphylaxis,Dyspnea High 06/16/2012 Mineral Oil-Hydrophil Petrolat Photosensitivity rash 06/27/2022 Other reaction(s): third degree giron Reaction to adhesive remover Morphine Hives,Unknown 06/16/2012 Ldmspuq-Iqc-Vzn Reductase Inhibitors Joint pain Medium 05/16/2021 Pt [...] - Right upper quad ultrasound - Start Aqknsor56 mg daily - Advised to follow FODMAP [...] suggest sclerosing mesenteritis. 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
--- OUTSIDE RECORDS SUMMARY | 2025-04-13 12:30 | XMS_ITS | Data Portability ---
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 Lab TSH + free T4, serum 2024 025 [facility], [address] [place] [address], [place], [address], 5 14:05:58 thyroid peroxidase (tpo) Ab, serum 2024 025 [facility], [address] [place] [address], [address], 5 12:52:56 tsi (thyroid-s timulating immunoglob ulin), serum 2024 025 [facility], [address] [place] [address], [address], 5 11:11:12 ESR (erythrocy te sedimentat ion rate), blood 2024 025 [facility], [address] [place] [address], [address], 5 11:11:13 C reactive protein, QN, serum or plasma 2024 025 [facility], [address] [place] [address], [address], 5 11:11:12 CBC w/ auto diff 2024 [facility], [address] [place] [address], [address], 14:05:58 Referral orthopedic surgeon referral 2024 [facility] Orthopedic Surgeon, [address], [facility] [address], [place], [address], 16:39:54 endocrinol ogy referral - patient has had recurrent issues with her thyroid, new nodules, mutliple biopsies, though function is normal 2024 [facility] , [address] [place], [address], 09:10:26 Procedures None recorded. Surgeries None recorded. Imaging NM, thyroid scan, w/ uptake - Not Required Procedure codes: 57565 Resolution : Completed on 03/20/2025 at 09:04 am. 2024 [facility], [address] [place], [address], 06/18/202 5 08:36:00 XR, thoracic spine, 3 view 2024 025 [facility] - Outpatient Imaging Central Scheduling (Not Breast), [address] [place], [address], 07:06:18 Medication Orders amoxicilli n 875 mg-potassi um clavulanat e 125 mg tablet 2023 025 [facility]/Pharmacy #[id number], [address] [place], [address], 11:31:49 fluconazol e 150 mg tablet [address]/Pharmacy #[id number], [address] [place], [address], 11:32:03 Patient TargetsNo targets recorded. Patient Instructions Encounter Date Encounter Id Patient Instructions Last Modified By Organization Details Last Modified Time 10/30/2024 [id number] learning about asthma Not available 10/30/2024 16:35:27 high cholesterol : care instructions Not available 10/30/2024 16:34:10 Reason for Referral Endocrinology Referral for M ultinodular goiter ?biopsy for new moderately atypical nodule patient has had recurrent issues with her thyroid, new nodules, mutliple biopsies, though function is normal Referring Physician: Vanessa Cortes, Internal Medicine, Encounter Date: 03/19/2025 Orthopedic Surgeon Referral for Pain of elbow region active pt, having left elbow pain, tennis elbow, has done well w inj in the past Referring Physician: Vanessa Cortes, Internal Medicine, Encounter Date: 03/19/2025 Results Created Date Observation Date Name Description Value Unit Range Abnormal Flag Note LastModifiedBy Organization Detail LastModifiedTime 07/10/2007/10/2024 adali castellon study No observ ation record ed. [email or web address] [facility] [address] [place], [address], 07/14/2024 09:19:42 07/19/2006/09/2024 fine needl e aspir ation , thyro id (PROC ) No observ ation record ed. BARCODE Not Available 2023 14:36:44 11/12/19 25 11/10/2024 XR, thora cic spine , 3 view No observ ation record ed. [facility] - Outpatient Imaging Central Scheduling (Not Breast) [address] [facility], [place], [address], 11/22/2024 10:11:12 03/01/20 25 03/01/2025 MAMMO , scree dirk, digit al, bilat eral No observ ation record ed. [facility] [address] [facility] [address], [place], [address], 03/02/2025 08:40:49 03/09/20 25 03/08/2025 US, thyro id No observ ation record ed. [email or web address] [address] [place], [address], 03/13/2025 10:20:53 03/09/20 25 03/08/2025 US, abdom en, compl ete No observ ation record ed. [email or web address] [address] [place], [address], 03/13/2025 10:20:45 Result Notes None recorded. Problems Name Problem SNOMED Code Status Onset Date Resolution Date Notes Provider Name and Address Organization Details Recorded Time COVID-19 367443068 Active 2021 Not Available [facility] 3 06:46:24 Hordeolum externum of lower eyelid of right eye 849546997965 104 Active 2021 Not Available [facility] 3 06:46:24 Diarrhea 29189914 Active 2021 Not Available [facility] 3 06:46:24 Abdominal pain 60688772 Active 2021 Not Available [facility] 3 06:46:24 Nausea and vomiting 86406321 Active 2021 Not Available [facility] 3 06:46:24 Sclerosin g mesenteri tis 917213980797 9100 Active 2021 Not Available [facility] 3 06:46:24 Exacerbat ion of intermitt ent asthma 536943197 Active 2021 Not Available [facility] 3 06:46:24 Migraine 69667060 Active 2021 Not Available [facility] 3 06:46:24 Type 2 diabetes mellitus 63446626 Active 2017 Not Available [facility] 3 06:46:24 Low back pain 457371465 Active 2017 LS Not Available [facility] 3 06:46:24 Asthma 962878537 Active 2017 Not Available [facility] 3 06:46:24 Hyperlipi demia 80477189 Active 2017 Not Available [facility] 3 06:46:24 Fibromyal shane 388762426 Active 2017 Not Available [facility] 3 06:46:24 Cervical lymphaden opathy 035539766 Active 2021 Not Available [facility] 3 06:46:24 Essential hypertens ion 70104335 Active 2017 Not Available [facility] 3 06:46:24 Iliotibia l band friction syndrome of left knee 764588908564 102 Active 2021 Not Available [facility] 3 06:46:24 Lateral epicondyl itis of left humerus 195123525428 100 Active 2021 Not Available [facility] 3 06:46:24 Seborrhei c keratosis 852641775 Active 2021 Not Available [facility] 3 06:46:24 Pain in throat 280830932 Active 2021 Not Available [facility] 3 06:46:24 Pain of left hip joint 188423657609 100 Active 2022 Not Available [facility] 3 06:46:24 Mass of mcclure 833861719 Active 2022 Not Available [facility] 3 06:46:24 Kidney lesion 734510687938 00 Active 2022 Not Available [facility] 3 06:46:24 Pain of nose 653490436 Active 2022 Not Available [facility] 3 06:46:24 Menopausa l flushing 130282693 Active 2022 Not Available [facility] 3 06:46:24 Subclinic al hypothyro idism 05844944 Active 2022 Not Available [facility] 3 06:46:24 Streptoco ccal sore throat 71177992 Active 2022 Not Available [facility] 3 06:46:24 Lateral epicondyl itis of right humerus 766670215065 107 Active 2022 SHEN ALLEN [address] [place] [address], [address], [facility] 3 16:29:54 Pain of right elbow joint 115749521651 05767 Active 2023 SHEN ALLEN [address] [place] [address], [address], [facility] 4 16:39:39 Herpes zoster 0840029 Active 2023 SHEN ALLEN [address] [place] [address], [address], [facility] 4 13:56:07 Thoracic back pain 654521325 Active 2023 SHEN ALLEN [address] [place] [address], [address], [facility] 4 13:57:51 Dysuria 66970975 Active 2023 SHEN ALLEN [address] [place] [address], [address], [facility] 4 14:21:23 Thyroid nodule 543809921 Active 2023 SHEN ALLEN [address] [place], [address], [facility] 4 14:31:51 Sclerosin g peritonit is 35465936 Active 2023 SHEN ALLEN [address] [place] [address], [address], [facility] 4 10:06:09 Neck pain 74391285 Active 2023 SEHN ALLEN [address] [place] [address], [address], [facility] 4 10:13:00 Degenerat ion of lumbar intervert ebral disc 53507836 Active 2023 SHEN ALLEN [address] [place] [address], [address], [facility] 4 15:10:43 Esophagea l dysphagia 89189228 Active 2023 SHEN ALLEN [address] [place] [address], [address], [facility] 4 16:31:41 Candidias is of vagina 76854844 Active 2023 SHEN ALLEN [address] [place] [address], [address], [facility] 4 11:50:25 Acute otitis media 2046383 Active 2023 SHEN ALLEN [address] [place] [address], [address], [facility] 4 11:54:58 Pain of left shoulder joint 530389028771 00307 Active 2024 SHEN ALLEN [address] [place] [address], [address], [facility] 5 08:48:01 Muscle pain 96076839 Active 2024 SHEN ALLEN [address] [place] [address], [address], [facility] 5 11:53:00 Spasm of back muscles 929407355 Active 2024 SHEN ALLEN [address] [place], [address], [facility] 5 11:53:12 Degenerat ion of thoracic intervert ebral disc 18857171 Active 2024 SHEN ALLEN [address] [place], [address], [facility] 5 10:13:29 Fatigue 54210231 Active 2024 SHEN ALLEN [address] [place], [address], [facility] 5 11:03:22 Clavicle pain 613351065 Active 2024 SHEN ALLEN [address] [place], [address], [facility] 5 11:08:06 Clavicle pain 443093286 Active 2024 SHEN ALLEN [address] [place] [address], [address], [facility] 5 11:11:11 Thyroidit is 19208358 Active 2024 SHEN ALLEN [address] [place] [address], [address], [facility] 5 11:32:01 Abdominal mass 394591114 Active 2024 SHEN ALLEN [address] [place] [address], [address], [facility] 5 11:32:32 Cobalamin deficienc y 444876184 Active 2024 SHEN ALLEN [address] [place] [address], [address], [facility] 5 11:38:33 Multinodu lar goiter 774573335 Active 2024 SHEN ALLEN [address] [place] [address], [address], [facility] 5 16:05:30 Pain of elbow region 39686612 Active 2024 SHEN ALLEN [address] [place], [address], [facility] 5 16:17:26 Vitamin D deficienc y 05570570 Active 2017 Not Available [facility] 3 06:46:24 Problem Notes None recorded. Procedures Surgical History Date Name Laterality Status Provider Name and Address Organization Details Recorded Time 10/04/19 19 Partial Hysterectomy completed January JULIA Manjarrez [address] [place], [address], [facility] 03/15/2019 09:47:37 Imaging Results None recorded. Procedure Notes None recorded. Medical Equipment None Reported. Allergies Allergen ID Allergen Name Allergen Category Reaction Reaction Severity Criticality Documentation Date Start Date Code Code System Note Provider Name and Address Organization Details Recorded Time 569 Ceclor medicatio n Not available Not available Not available 12/22/201765705 5 RxNorm Carolina Kwon [facility] 8 09:31:34 570 clindamyc in Not available Not available Not available Not available 12/22/2017 2582 [facility] 09:[facility]51 571 codeine medicatio n Not available Not available Not available 12/22/2017 2670 RxNotia Kwon [facility] 8 09:33:50 572 Dilaudid medicatio n Not available Not available Not available 12/22/2017 51495 3 [facility] 8 09:34:08 573 hydrocodo ne Not available Not available Not available Not available 12/22/2017 5489 Nicolas Kwon [facility] 8 09:34:26 574 morphine medicatio n Not available Not available Not available 12/22/2017 7052 [facility] 8 09:35:00 575 Product containin g 3-hydroxy -3-methyl glutaryl- coenzyme A reductase inhibitor (product) medicatio n Not available Not available Not available 12/22/2017 70013 009 SNOMED bruis ing[facility] 8 09:41[facility]08 576 Tylox medicatio n Not available Not available Not available 12/22/2017 54792 5 RxNorm Carolina fischer [facility] 8 09:35:21 577 azithromy marcella medicatio n Not available Not available Not available 12/22/2017 21248 [facility] 8 09:41:52 578 Levaquin medicatio n anaphylax is Not available Not available 12/22/2017 05459 2 [facility] 8 09:37:18 8261 Iodinated contrast media (substanc e) medicatio n hives moderate Not available 05/17/20242023 15585 2003 SNOMED Sade Gannon [facility] 4 15:25:09 8375 shellfish derived food,medi cation dyspnea moderate Not available 07/03/2024 [id number] [facility] SHEN ALLEN [address] [place] [address], [address] 4 16:14:32 Medications Name Sig Start Date [...] Not Available fluconazo le 150 mg tablet Take 1 tablet every 72 hours by oral route for 3 days. 11/10 completed Not Available Not Available [...] in Arterial blood by Pulse oximetry Systolic And Diastolic Provider Name and Address Organization Details Last Updated DateTime 5 163.83 cm 24.5 kg/m2 64249.8 9 g 80 /min 98 % 98 % 140/84 mm[Hg] Mark Jasbir [facility] 5 11:36:42 Date Recorded Body height Body mass index (BMI) Body weight Heart rate Oxygen saturation Oxygen saturation in Arterial blood by Pulse oximetry Systolic And Diastolic Provider Name and Address Organization Details Last Updated DateTime 5 163.83 cm 24.8 kg/m2 41728.0 8 g 74 /min 95 % 95 % 148/94 mm[Hg] Sade Drew [facility] Internal [facility] 5 10:54:55 Date Recorded Body height Body mass index (BMI) Body weight Heart rate Oxygen saturation Oxygen saturation in Arterial blood by Pulse oximetry Systolic And Diastolic Provider Name and Address Organization Details Last Updated DateTime 5 163.83 cm 24.8 kg/m2 71527.0 8 g 74 /min 97 % 97 % 130/80 mm[Hg] Lila Sánchez [facility] 5 15:51:33 Date Recorded Body height Heart rate Oxygen saturation Oxygen saturation in Arterial blood by Pulse oximetry Systolic And Diastolic Provider Name and Address Organization Details Last Updated DateTime 4 163.83 cm 67 /min 97 % 97 % 132/86 mm[Hg] Sade [facility] 4 11:39:09 Social History Question Answer Notes LastModified by Organizat ion Details LastModified Time Tobacco Smoking Status Never Smoker Not Available [facility] 08/06/2020 03:36:23 What Was The Date Of Your Most Recent Tobacco Screening? 03/19/2025 [email or web address] Information not available 03/19/2025 Sex: Unknown Functional Status Question Answer Note LastModified by Organization D etails LastModified Time Do you or have you ever used any other forms of tobacco or nicotine? No Information not available 03/19/2025 Mental Status None recorded. Family History Nothing Reported. Medical History No medical history recorded. Gynecological HistoryNo gynecological history recorded. Obstetrics History GPAL:G 0 P 0 0 0 0 Immunizations Vaccine Type Date Status Note Provider Nam e and Address Organization Details Recorded Time COVID-19, mRNA, LNP-S, PF, 100 mcg/0.5mL dose or 50 mcg/0.25mL dose 1 completed Not Available [facility] 08/18/2023 06:46:25 COVID-19, mRNA, LNP-S, PF, 100 mcg/0.5mL dose or 50 mcg/0.25mL dose 1 completed Not Available [facility] 08/18/2023 06:46:25 COVID-19, mRNA, LNP-S, PF, 100 mcg/0.5mL dose or 50 mcg/0.25mL dose 1 completed Not Available [facility] 08/18/2023 06:46:25 Influenza, split virus, quadrivalent, preservative 1 completed Not Available [facility] 08/18/2023 06:46:25 Influenza, split virus, quadrivalent, preservative 2 completed Not Available [facility] 08/18/2023 06:46:25 COVID-19, mRNA, LNP-S, PF, 30 mcg/0.3 mL dose 2 completed Not Available [facility] 08/18/2023 06:46:25 Influenza, split virus, quadrivalent, preservative 8 completed Not Available [facility] 08/18/2023 06:46:25 influenza, unspecified formulation 4 completed Sade fischer [facility] 07/12/2024 12:12:30 SARS-COV-2 (COVID-19) vaccine, UNSPECIFIED 4 completed Sade fischer [facility] 07/12/2024 12:12:37 Influenza, split virus, quadrivalent, preservative 9 completed Not Available [facility] 08/18/2023 06:46:25 Influenza, split virus, quadrivalent, preservative 0 completed Not Available [facility] 08/18/2023 06:46:25 Past Encounters Encounter ID Performer Location Encounter Start Date Encounter Closed Date Diagnosis/Indication Diagnosis SNOMED-CT Code Diagnosis ICD10 Code Diagnosis Note [id number] Donald Hill DO [facility] [address] [facility],[place] [address] 02/02/2018 16:18:27 02/02/2018 17:02:10 Asthma 093342751 J45.909 finally improving, continue to monitor Vitamin D deficiency 347 [address]40 E55.9 some symptomati c improvemen t will recheck labs in 6 months Type 2 sandy betes mellitus 07395775 E11.65 working on diet, will work on exercise now that she is feeling better continue current regimen may need to consider statin, will recheck her labs in a few months diet counselkristin khalil 15 minutes [id number] Donald Hill [facility] [address] [facility],[address] [place] [facility] [address] 06/03/2018 11:15:10 06/03/2018 12:17:05 Essential hypertension 58496756 I10 stable Asthma 384274027 J45.90 9 finally improving, continue to monitor Epicondylitis 59903567 M 77.8 lateral epicondyle also ice, rest, brace [id number] Donald Hill [facility] [address] [facility],[place] [address] 06/14/2018 15:49:02 06/14/2018 16:30:59 Asthma 957823942 J45.909 finally improving, continue to monitor Pneumonia 598410257 J18. 9 use pro air use symbicort use mucinex [id number] Donald Hill [facility] [address] [facility],[place] [address] 06/21/2018 15:54:49 06/22/2018 09:28:54 Asthma 362136164 J45.909 finally improving, continue to monitor Pneumonia 298653803 J18. 9 use pro air use symbicort use mucinex Type 2 sandy betes mellitus 82736958 E11.65 working on diet, will work on exercise now that she is feeling better continue current regimen may need to consider statin, will recheck her labs in a few months diet counselkristin khalil 15 minutes Essential hypertension 72313335 I10 stable Mixed hyperlipidemia 267 521732 E78.2 not well controlled fish oil/red yeast rice supplement with close diet and exercise fiber supplement recheck 6 months [id number] Donald Hill [facility] [address] [facility],[place] [address] 08/19/2018 15:31:40 08/19/2018 16:06:50 Pneumonia 254953068 J18.9 increased risk for bacterial infection due to dm need to cover as she has upcoming surgery use pro air use symbicort use mucinex Asthma 188622788 J45.90 9 finally improving, continue to monitor Type 2 sandy betes mellitus 57380248 E11.65 working on diet, will work on exercise now that she is feeling better continue current regimen may need to consider statin, will recheck her labs in a few months diet ananth khalil 15 minutes Donald Hill [facility] [address] [facility],[place] [address] 03/15/2019 09:27:42 03/15/2019 10:11:53 Asthma 834023958 J45.909 stable Vitamin D deficiency 347 46551 E55.9 some symptomati c improvemen t will recheck labs in 6 months Type 2 sandy betes mellitus 74634211 E11.65 just starting to recover from surgery will be working on diet will give another 3 months, then add new meds if no improvemen t Hyperlipidemia 51088277 E78.5 again work on diet add red yeast rice continue fenofibrat e reconsider statins pending feeling Essential hypertension 41744088 I10 elevated would like to work on exercise first Body mass index 30+ - obesity 790778783 Z68.32 wants to work on weight loss [id number] Donald iHll [facility] [address] [facility],[place] [address] 05/02/2019 14:38:37 05/02/2019 15:26:11 Bacterial conjunctivitis 782088552 H10.9 Asthma 822042947 J45.90 9 stable Type 2 sandy betes mellitus 22272550 E11.65 just starting to recover from surgery will be working on diet will give another 3 months, then add new meds if no improvemen t Essential hypertension 57163508 I10 elevated would like to work on exercise first [id number] Donald Hill [facility] [address] [facility],[place] [address] 07/12/2019 13:31:56 07/12/2019 14:17:30 Asthma 777395322 J45.909 stable Type 2 sandy betes mellitus 78352485 E11.65 has been working on diet has made some improvemen t with a1c from 9.6 to 8.6 eating more fish continue healthy diet and exercise Essential hypertension 59268071 I10 elevated initially, returned to normal after rechecking Fatigue 02609882 R53.83 Vitamin D deficiency 347 51219 E55.9 some symptomati c improvemen t will recheck labs in 6 months [id number] Donald Hill [facility] [address] [facility], [place] [address] 08/29/2019 10:13:18 08/29/2019 10:56:40 Acute otitis media 0480561 H66.92 Acute blepharitis 147461 04 H01.009 Asthma 174383228 J45.90 9 stable Essential hypertension 48573636 I10 MILDLY ELEVATED Candidiasis of vagina 72 527024 B37.3 [id number] Donald Hill [facility] [address] [facility],[place] 7 09/12/2019 16:10:44 09/12/2019 16:49:02 Parotid swelling 017100811 K11.9 took amox recently take probiotic take with food Sialoadenitis 41594809 K 11.20 Candidiasis of vagina 72 941438 B37.3 Essential hypertension 32983801 I10 MILDLY ELEVATED ONCE AGAIN [id number] Donald Hill [facility] [address] [facility],[place] [address] 05/31/2020 10:56:05 05/31/2020 11:58:08 Asthma 195059408 J45.909 stable Essential hypertension 84541206 I10 BP elevated but actually better than last check will monitor Type 2 sandy betes mellitus 90157261 E11.9 will check A1c as she is due Contact dermatitis 70686 004 L25.9 will try stronger steriod topically as she doesn't do well on pred due to diabetes will also given epipen in case allergic reaction worsens Vitamin D deficiency 347 82190 E55.9 needs to have vitamin d checked [id number] Donald Hill [facility] [address] [facility],[place] [address] 09/04/2020 08:14:20 09/04/2020 16:10:44 Essential hypertension 49259751 I10 BP monitor will daughter Type 2 sandy betes mellitus 68786217 E11.9 will try diet again, very strict rules if no improvemen t will add on glipizide or endo appt Hyperlipidemia 53421557 E78.5 will add on fish oil supplement and take red yeast rice supplement more regularly Vitamin D deficiency 347 50464 E55.9 needs to have vitamin d checked [id number] Donald Hill DO [facility] Internal Medicine [address] [facility],[place] [address] 11/25/2021 09:49:05 11/25/2021 14:15:14 Asthma 974719497 J45.30 stable Essential hypertension 25408911 I10 BP monitor will daughter Type 2 sandy betes mellitus 87134739 E11.65 patient is currently trulicity Vitamin D deficiency 347 62988 E55.9 needs to have vitamin d checked Hyperlipidemia 54978542 E78.01 following up with endo for monitoring Pain of breast 88946421 N64.4 left breast 83200 Donald Hill DO [facility] Internal Medicine [address],[place] [address] 03/03/2022 10:58:40 03/03/2022 16:28:15 Acute blepharitis 68567738 H01.021 will start on ointment Hordeolum externum of lower eyelid of right eye 7293704711 13309 H00.012 will fu with pt if no improvemen t [id number] Donald Hill DO [facility] Internal Medicine [address] [facility] [address],[place] [address] 03/25/2022 10:59:12 03/25/2022 11:43:49 Diarrhea 22105982 R19.7 will fu with lab work up first before imaging to assess what is causing the issue possible previous infection due to spleen tenderness but will fu that up with lab work Abdominal pain 31647496 R10.0 will fu with full workholdin g on CT until labs come in Nausea and vomiting 1692 1999 R11.2 [place] [address] SHEN ALLEN [facility] Internal Medicine [address] [facility] [address],[place] [address] 05/26/2022 13:38:10 05/26/2022 14:42:20 Sclerosing mesenteritis [id number] 767829 K65.4 will fu with STAT GI referral [facility] [place] [facility] [place] [address] Donald Hill DO [facility] Internal Medicine [address],[place] [address] 07/17/2022 08:14:04 07/17/2022 16:49:48 Type 2 diabetes mellitus 20638683 E11.65 will f/u Sclerosing mesenteritis 0891754883 313318 K65.4 will f/u with lab work Cervical lymphadenopathy 784361755 R59.0 will check US neck soft tissue Hyperlipidemia 92587146 E78.01 following up with endo for monitoring 57031 Donald Hill DO [facility] Internal Medicine [address],[place] [address] 08/03/2022 16:13:46 08/04/2022 09:01:43 Hyperlipidemia 47663296 E78.01 will f/u with lipid panels here since her endo left Abdominal pain 90604770 R10.0 will need to call Monika for the dose of prednisone (10 mg)did consult surgeon for the LN biospy; they didn't think it was big enough ?lymphoma without tumorCRP was elevated which was a concern Essential hypertension 81192111 I10 BP monitor will daughter Iliotibial band friction syndrome of left knee 9958799424 41663 M76.32 will trial PT first Lateral ep icondylitis of left humerus 5793553391 37949 M77.12 will set up with PT Seborrheic keratosis 394 284733 L82.1 will set up with derm 75577 Donald Hill DO [facility] Internal Medicine [address], [address] [employer] [facility] [address] 02/10/2023 10:56:45 02/10/2023 16:34:11 Mass of mcclure 395277483 R22.42 agreed to US left LE Type 2 sandy betes mellitus 10962821 E11.65 needs to monitor her [id number] 10.4% Sclerosing mesenteritis 1251225707 023507 K65.4 seeing GI on (h as been on prednisone which is most likely what is causing more of the spike in her sugar)the patient may be having a LN biospy? feel that would be the most appropriat e optionwill have this discussion againher LN was bigger with recent CT Kidney lesion 0940011237 9100 N28.9 left kidneytoo small; will recheck in 6 mos > US in 6 mos Pain of le ft hip joint 9396848584 57977 M25.552 52840 Donald Hill [facility] Internal Medicine [address],[place] [address] 07/21/2023 11:06:40 07/21/2023 13:23:56 Menopausal flushing 439128072 N95.1 will set up with lab work for possible menopause Subclinica l hypothyroidism 84688655 E02 ? anne-marie' s still working with endo for a full answer [id number] Donald Hill [facility] Internal Medicine [address],[place] [address] 12/14/2023 13:39:26 12/14/2023 15:37:53 Herpes zoster 8111740 B02.9 ? 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 her numbers have been much improved since she started her diet and lifestyle changessta ys within the green, had a very low readingwil l set up with change in medication , drop to 500 mg Asthma 084683768 J45.30 stable 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 agreed to check if it is shrimp Pain of le ft hip joint 4701552649 19871 M25.552 will set up with full screen for XRs Thoracic back pain 66279 8004 M54.6 will run an autoimmune panel again as wellagreed to XR specific for the thoracic back Neck pain 04038591 M54.2 will set up with XRs [id number] Donald Hill [facility] Internal Medicine [address] [facility], [place] [address] 07/03/2024 15:56:46 07/03/2024 16:42:16 Renewal of prescription 893638935 Z76.0 stable Esophageal dysphagia 408 10750 R13.19 agreed to barium swallow study Thyroid nodule 477067935 E04.1 needs US in one year Type 2 sandy betes mellitus 16530316 E11.65 doing really well Subclinica l hypothyroidism 95799350 E02 endo will not see her unless the US shows need for biopsy again Pain of le ft hip joint 4644068186 87551 M25.552 printed referral [id number] Donald Hill [facility] Internal Medicine [address], [facility] [place] [address] 07/19/2024 11:27:39 07/19/2024 13:29:24 Acute otitis media 2598949 H65.01 start on augmentin Candidiasis of vagina 72 794407 B37.31 issues with abx provoked yeast infectiona lways gets fluconazol e 424573 Donald Hill [facility] Internal Medicine [address], [place] [address] 10/30/2024 13:31:24 10/30/2024 16:38:59 Esophageal dysphagia 95018520 R13.19 here for rechk noted she is still having an issue relates had nl egd wonder if she is having a prob with laryngeal reflux\als o is seeing [facility] which has been giving her supp Essential hypertension 51954624 I10 bp is better since she has lost 50 lbs overallshe is off propranolo l Type 2 sandy betes mellitus 00293470 E11.65 is taking supp along metform which is glucobeti c along with a lot of supp Hyperlipidemia 77675159 E78.01 back on red yeast rice but is off rosuvastat in Asthma 216645277 J45.30 using albut during cold 470343 [facility] [address],[place] [address] 11/10/2024 11:26:11 11/10/2024 11:59:56 Thoracic back pain 870388313 M54.6 will set up with XR thoracicwi ll cont with OTC meds, will call wednesday with update otherwise if she needs additional medication s Muscle pain 92476595 M79 .18 cont OTC meds Spasm of back muscles 20 9662605 M62.830 cont OTC meds [id number] [facility] [address],[place] [address] 01/09/2025 10:47:15 01/09/2025 14:45:37 Thyroid nodule 357050207 E04.1 needs US in one year Fatigue 95681789 R53.83 set up with f/u lab work Clavicle pain 346324814 M25.511 swelling oh, R>L [id number] [facility] [address],[place] [address] 03/19/2025 15:46:12 03/19/2025 16:24:48 Depression screening 684100715 Z13.31 0 negative Multinodular goiter 2375 43037 E04.2 new moderate Pain of elbow region 743 74262 M25.522 needs new ortho referral Abdominal mass 182218451 R19.07 still mildly tender Abdominal pain 33749941 R10.0 stablesaw GI Essential hypertension 39086428 I10 stable Health Concerns Section Related Observation LastModified by Organization Detai ls LastModified Time None Recorded Concern Status LastModified by Organization Details LastModified Time None Recorded Advance Directives Directive None Recorded Payers Insurance Date Sequence Insurance Name Policy Number Policy Gonzalez Covered Member ID Gonzalez Member ID Guarantor Name 03/16/2025 1 [employer] (PPO) [id number] Zaheer Moyer [id number] Cassie Comfort 10/07/2020 1 [facility] [id number] Zaheer Moyer [id number] Cassie Moyer Notes Date Note Type Note Provider Name a nd Address Organization Details Recorded Time 4 text/html c/o acute otitis media the patient reports that she is having right ear painsister removed some wax and noted bleeding in the ear and inflammation needs something for yeast infection after abx use seeing ENT and GI for f/u discuss [facility] for the chocking and breathing issueswill run by ENT and GI SHEN ALLEN [address] [place], [address], [facility] 07/19/2024 12:03:05 5 text/html patient is evaluated via tele/video assessment per patient consentduring current pandemic relates that she underwent testing and had a egd done with some dilationalso is still having pain to her right ear Donald Hill DO [address] [place], [address], [facility] 10/30/2024 16:35:41 5 text/html c/o [...] thoracic XR for patient SHEN ALLEN [address] [place], [address], [facility] 11/10/2024 11:54:08 5 text/html c/o fatigue, neck pain the patient is having tenderness around her thyroid, SCM tendon tendernessthe patient reports she did have the flu a few months ago, still having night sweats, chills, fatigue 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
[2025-04-13 16:06] LABS: MANUAL DIFF FLAG NO
[2025-04-13 16:17] LABS: Hematocrit 42.8 % (37.0-47.0); Hemoglobin 14.5 g/dl (12.0-16.0); Imm Gran Abs Auto 0.01 X10*3/uL (0.00-0.03); Imm Gran Pct Auto 0.2 % (0.0-0.4); Lymphocytes Absolute Auto 2.3 X10*3/uL (1.2-4.9); Mean Corpuscular HGB Conc 33.9 g/dl (31.0-35.0); Mean Corpuscular Hemoglobin 29.7 pg (27.0-33.0); Mean Corpuscular Volume 87.7 fL (80.0-98.0); NRBC Abs Auto 0.000 X10*3/uL (0.0-0.012); NRBC Pct Auto 0.0 /100WBC (0.0-0.2); Platelet Count 334 X10*3/uL (160-400); Red Blood Count 4.88 X10*6/uL (4.20-5.50); White Blood Count 6.2 X10*3/uL (4.8-10.8)
[2025-04-13 16:47] LABS: Alanine Aminotransferase 28 U/L (0-31); Albumin Level 4.3 g/dL (3.5-5.0); Alkaline Phosphatase 43 U/L (39-117); Anion Gap 10 (12-20); Aspartate Amino Transferase 26 U/L (5-31); Blood Urea Nitrogen 16 mg/dL (9-16); Calcium 9.6 mg/dL (8.4-10.2); Carbon Dioxide 28 mmol/L (22-29); Chloride 105 mmol/L (96-108); Estimated Glomerular Filt Rate > 60; Potassium 4.2 mmol/L (3.3-5.1); Sodium 139 mmol/L (135-145); Total Protein 7.1 g/dL (6.5-8.0)
[2025-04-13 16:49] LABS: Hemoglobin A1C 204.6456 umol/L; Total Hemoglobin (HGBA1C) 3874.9809 umol/L
[2025-04-13 16:52] LABS: Free T4 (Free Thyroxine) 0.90 ng/dL (0.71-1.85); Thyroid Stimulating Hormone 1.44 uIU/mL (0.32-4.0)
[2025-04-13 16:58] LABS: Parathyroid Hormone Intact 58.0 pg/mL (8.7-77.1)
[2025-04-13 17:11] LABS: Folate 11.4 ng/mL (> or = 4.0); Vitamin B12 1173 pg/mL (200-900)
== END 2025-04-13 12:20 | disposition home or self-care (01) ==
LOC: HO.HMGCLDS 12:19
PROVIDERS: PCP Physician Assistant; Visit Provider Physician Assistant
DX: E11.65 Type 2 diabetes mellitus with hyperglycemia (principal); E53.8 Deficiency of other specified B group vitamins; E55.9 Vitamin D deficiency, unspecified; E06.9 Thyroiditis, unspecified
CPT/HCPCS: 36415; 80053; 82306; 82607; 82746; 83036; 83970; 84439; 84443; 84445; 84481; 85025; 86376